=== PATIENT | male | born 1965 | race Caucasian/White ===

== ENCOUNTER → 2020-01-22 | Outpatient (CLI) | payer OTHER ==
--- NOTE | 2020-01-22 15:08 | Diagnostic Imaging Report ---
INDICATION: Cellulitis of right foot. EXAM: AP, oblique, and lateral views of the right foot are obtained. FINDINGS: The patient has had previous amputation of the 2nd and 1st digits. There are are likely chronic irregularities of the distal aspect of the 4th and 3rd metatarsals. Remaining structures appear unremarkable. IMPRESSION: Chronic changes of 1st and 2nd digits, status post amputation. There is irregularity of the 3rd and 4th metatarsals distally which may be chronic. There is no other abnormal finding. If there is clinical suspicion of osteomyelitis, MRI study would be more sensitive. Dictated by: Dictated on workstation # [id number]
== END ==
LOC: RAD 14:43
PROVIDERS: ATTEND Surgery
DX: L03.031 Cellulitis of right toe (principal); Z89.411 Acquired absence of right great toe; Z89.421 Acquired absence of other right toe(s)
CPT/HCPCS: 73630

== ENCOUNTER → 2020-02-10 | Outpatient (CLI) | payer OTHER ==
[~2020-02-10] MED LIST: GADOBUTROL 10 MMOL/10 ML (GADAVIST) VIAL IV ONE
[2020-02-10 09:56] LABS: CREATININE SERUM 1.29 MG/DL (0.60-1.30)
--- NOTE | 2020-02-10 11:36 | Diagnostic Imaging Report ---
PROCEDURE: MR imaging right lower extremity with and without contrast. TECHNIQUE: Multiplanar, multisequence pre and post contrast-enhanced MR imaging of the right lower extremity was accomplished. INDICATION: Cellulitis of third toe. FINDINGS: There are no prior MRI examinations available for comparison. The plain film examination of the right foot performed on 01/22/2020 did note that the phalanges of the first and second digits as well as portions of the heads of the first and second metatarsals have been amputated. There was also irregularity of the heads of the third and fourth metatarsal heads. On the T1 series of this exam, there are areas of diminished signal involving the heads of the third and fourth metatarsals. These regions do enhance following administration of contrast and I do suspect that there is involvement of both metatarsal heads by osteomyelitis. There is also a small area of enhancement involving the plantar aspect of the head of the second metatarsal. Most likely, there is a small focus of osteomyelitis in this region as well. There is no other abnormal enhancement to suggest osteomyelitis. There is mild soft tissue edema about the phalanges and metatarsal head of the third digit. There is no sign of a soft tissue abscess. IMPRESSION: The abnormal enhancement of the heads of the second, third, and fourth metatarsals does suggest that there is an element of osteomyelitis present. There is also edema/inflammation of the soft tissues about the phalanges and metatarsal head of the third ray. There is no soft tissue abscess visualized, however. Dictated by: Dictated on workstation # [id number]
== END ==
LOC: RAD 08:30
PROVIDERS: ATTEND Surgery
DX: L03.031 Cellulitis of right toe (principal)
CPT/HCPCS: 36415; 73720; 82565; 84520

== ENCOUNTER → 2020-02-13 | Outpatient (CLI) | payer OTHER ==
--- NOTE | 2020-02-13 11:49 | Diagnostic Imaging Report ---
INDICATION: Right foot osteomyelitis COMPARISON: Ultrasound from same date TECHNIQUE: Ankle to brachial indices are obtained bilaterally. FINDINGS: The right brachial systolic blood pressure is 128 mmHg. Systolic blood pressure within the right posterior tibial artery is 161 mmHg. Therefore, the right ankle-brachial index is 1.26, which is within normal limits. Systolic blood pressure within the left posterior tibial artery is 160 mmHg. Therefore, the left ankle to brachial index is 1.25. IMPRESSION: Normal bilateral ankle to brachial indices as described above. Dictated by: Dictated on workstation # [id number]
--- NOTE | 2020-02-13 14:33 | Diagnostic Imaging Report ---
INDICATION: Right foot osteomyelitis, peripheral arterial disease COMPARISON: None available TECHNIQUE: Right lower extremity arterial duplex ultrasound performed on 02/13/2020. FINDINGS: Triphasic waveforms are identified throughout the large arterial structures of the right lower extremity except biphasic waveforms are noted within the right profunda femoris artery. No monophasic waveforms. Peak brisk upstrokes are identified without tardus parvus morphology. No focally increased velocities. IMPRESSION: No evidence of hemodynamically significant stenosis within the large arterial structures of the right lower extremity. Dictated by: Dictated on workstation # [id number]
== END ==
LOC: RAD 02-12 16:11
PROVIDERS: ATTEND Surgery
DX: M86.9 Osteomyelitis, unspecified (principal)
CPT/HCPCS: 93923; 93926

== ENCOUNTER 2020-04-19 05:43 | Outpatient (RCR) | payer OTHER ==
[~2020-04-19] VITALS: Ht 182.9 cm; Wt 97.7 kg
[~2020-04-19 05:43] MED LIST changes: +EMPA10TA PO; -GADOBUTROL 10 MMOL/10 ML (GADAVIST) VIAL IV ONE; +GLIM4TAB5 PO; +LISI10TA2 PO; +MULT-1104 PO; +ROSU20TA32 PO
== END 2020-04-19 10:38 | disposition home or self-care (01) ==
LOC: PREOP 05:43
PROVIDERS: ATTEND Surgery
DX: Z01.812 Encounter for preprocedural laboratory examination (principal); Z20.828 Contact with and (suspected) exposure to other viral communicable diseases; M86.9 Osteomyelitis, unspecified
CPT/HCPCS: 87635

== ENCOUNTER 2020-04-22 06:14 | Day surgery (SDC) | payer OTHER ==
[~2020-04-22] VITALS: Ht 182 cm; Wt 97.7 kg
[2020-04-22] VITALS (7 sets, daily range): BP systolic 124–139; BP diastolic 73–83
--- OUTSIDE RECORDS SUMMARY | 2020-04-22 06:18 | XMS REPORT | Continuity of Care Document ---
Author Organization Unknown Address Unknown Phone Unavailable Allergies Active Description Code Type Severity Reaction Onset Reported/Identified Relationship to Patient Clinical Status Yes No Known Drug Allergies [id number] Drug Allergy Unknown N/A 02/10/2020 Medications There is no data. Problems Date Dx Coded Attending Type Code Diagnosis Diagnosed By 01/23/2020 GARCES DO, WILDER D Ot L03.031 CELLULITIS OF RIGHT TOE 01/23/2020 GARCES DO, WILDER D Ot 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 01/23/2020 GARCES DO, WILDER D Ot Z89.421 ACQUIRED ABSENCE OF OTHER RIGHT TOE(S) 01/26/2020 GARCES DO, WILDER D Ot L03.031 CELLULITIS OF RIGHT TOE 01/26/2020 GARCES DO, WILDER D Ot 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 01/26/2020 GARCES DO, WILDER D Ot Z89.421 ACQUIRED ABSENCE OF OTHER RIGHT TOE(S) 02/03/2020 GARCES DO, WILDER D Ot L03.031 CELLULITIS OF RIGHT TOE 02/03/2020 GARCES DO, WILDER D Ot 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 02/03/2020 GARCES DO, WILDER D Ot Z89.421 ACQUIRED ABSENCE OF OTHER RIGHT TOE(S) 02/04/2020 GARCES DO, WILDER D Ot L03.031 CELLULITIS OF RIGHT TOE 02/04/2020 GARCES DO, WILDER D Ot 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 02/04/2020 GARCES DO, WILDER D Ot Z89.421 ACQUIRED ABSENCE OF OTHER RIGHT TOE(S) 02/11/2020 GARCES DO, WILDER D Ot L03.031 CELLULITIS OF RIGHT TOE 02/12/2020 GARCES DO, WILDER D Ot L03.031 CELLULITIS OF RIGHT TOE 02/12/2020 GARCES DO, WILDER D Ot L03.031 CELLULITIS OF RIGHT TOE 02/12/2020 GARCES DO, WILDER D Ot 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 02/12/2020 COUNCIL BLUFFS DO, WILDER D Ot Z89.421 ACQUIRED ABSENCE OF OTHER RIGHT TOE(S) 02/12/2020 GARCES DO, WILDER D Ot L03.031 CELLULITIS OF RIGHT TOE 02/12/2020 COUNCIL BLUFFS DO, WILDER D Ot L03.031 CELLULITIS OF RIGHT TOE 02/16/2020 COUNCIL BLUFFS DO, WILDER D Ot M86. 9 OSTEOMYELITIS, UNSPECIFIED 02/25/2020 GARCES DO, WILDER D Ot L03.031 CELLULITIS OF RIGHT TOE 04/20/2020 COUNCIL BLUFFS DO, WILDER D Ot L03.031 CELLULITIS OF RIGHT TOE 04/20/2020 COUNCIL BLUFFS DO, WILDER D Ot 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 04/20/2020 COUNCIL BLUFFS DO, WILDER D Ot Z89.421 ACQUIRED ABSENCE OF OTHER RIGHT TOE(S) 04/20/2020 COUNCIL BLUFFS DO, WILDER D Ot L03.031 CELLULITIS OF RIGHT TOE 04/20/2020 COUNCIL BLUFFS DO, WILDER D Ot 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 04/20/2020 COUNCIL BLUFFS DO, WILDER D Ot Z89.421 ACQUIRED ABSENCE OF OTHER RIGHT TOE(S) 04/20/2020 COUNCIL BLUFFS DO, WILDER D Ot L03.031 CELLULITIS OF RIGHT TOE 04/20/2020 COUNCIL BLUFFS DO, WILDER D Ot 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 04/20/2020 COUNCIL BLUFFS DO, WILDER D Ot Z89.421 ACQUIRED ABSENCE OF OTHER RIGHT TOE(S) 04/20/2020 COUNCIL BLUFFS DO, WILDER D Ot L03.031 CELLULITIS OF RIGHT TOE 04/20/2020 COUNCIL BLUFFS DO, WILDER D Ot M86. 9 OSTEOMYELITIS, UNSPECIFIED Procedures There is no data. Results Test Result Range Coronavirus SARS-CoV-2 SO 2018 - 0 08:28 Coronavirus Ab [Units/volume] in Serum Negative Negative Encounters ACCT No. Visit Date/Time Discharge Status Pt. Type Provider Facility Loc./Unit Complaint [id number] 04/19/2020 05:43:00 020 10:38:00 DIS Outpatient COUNCIL BLUFFS WILDER GRAY [facility] PREOP RIGHT 3RD TOE AMPUTATIO N [id number] 02/13/2020 09:13:00 23:59:59 CLS Outpatient WILDER GARCES DO [facility] RAD RIGHT FOOT OSTEOMYELITI S [id number] 02/10/2020 08:30:00 23:59:59 CLS Outpatient WILDER GARCES DO [facility] RAD CELLULITIS OF RIGHT TOE [id number] 01/22/2020 14:43:00 23:59:59 CLS Outpatient WILDER GARCES DO [facility] RAD OSTEOMYLITIS [id number] 04/22/2020 08:00:00 P EN Preadmit WILDER GARCES DO [facility] SDC OSTEOMYLITIS RIGHT THIRD TOE
[2020-04-22] MEDS ORDERED: LACTATED RINGERS 1,000 ML IV PRN (06:23)
[2020-04-22] MEDS ORDERED: ceFAZolin 2 GM IV Premixed 50 ML IV ONE (06:30)
[2020-04-22] MEDS ORDERED: BUPIVACAINE 0.5% 30 ML (SENSORCAINE) VIAL ONE (07:40)
[2020-04-22] MEDS ORDERED: LIDOCAINE 1% INJ 20 ML 20 ML VIAL ONE (07:41)
[2020-04-22] MEDS ORDERED: ONDANSETRON 4 MG/2 ML (SDV) Z0FRAN IVP PRN (09:00)
[2020-04-22] MEDS ORDERED: morphine INJ 10 MG/ML 1ML (SYR OR VIAL) IVP ONE (09:00)
[2020-04-22] MEDS ORDERED: HYDR-4226 PO (09:32)
--- NOTE | 2020-04-22 09:34 | Discharge Inst-Simple/Standard ---
Discharge Inst-Standard Discharge Medications New, Converted or Re-Newed RX: RX on Chart Patient Instructions/Follow Up Plan of Care/Instructions/FU: 2 weeks Sofiya Activity as Tolerated: Yes Discharge Diet: Regular Diet Other Inst to Patient Follow up Appt: Make appointment for 2 week. Instructions: No lifting greater than 10 pounds. No strenuous activity. May shower in 24 hours, no tub bath or soaking. Use incentive spirometer at home as directed. No Smoking Skin/Wound Care: You have stitches, they will need to be removed in 2 weeks. Any issues before that be seen at that time. Symptoms to Report: Appetite Changes, Extremity Discoloration, Numbness/Tingling, Swelling Increased, Bleeding Excessive, Eyesight Changes, Pain Increased, Urine Color Change, Constipation(Persistent), Fever over 101 degree F, Pain/Pressure in chest, Urinating Difficulty, Cough Up/Vomit Blood, Heart Beat Irreg/Pounding, Pain/Pressure in jaw, Vaginal Bleeding Increase, Cramps in feet or legs, Lightheadedness, Pain/Pressure in shoulder, Diarrhea(Persistent), Memory Changes Suddenly, Questions/Concerns, Weight gain consecutive days, Dizziness/Fainting, Nausea/Vomiting, Shortness of Breath, Weight gain over 2 pounds If questions or concerns contact your physician Or seek help at emergency department. WILDER GARCES DO Apr 22, 2020 09:34
--- NOTE | 2020-04-22 10:29 | Anesthesia-General Post-Op ---
MAC Patient Condition Mental Status/LOC: Same as Preop Cardiovascular: Satisfactory Nausea/Vomiting: Absent Respiratory: Satisfactory Pain: Controlled Complications: Absent Post Op Complications Complications None Follow Up Care/Instructions Patient Instructions None needed. Anesthesiology Discharge Order Discharge Order Patient was seen after the procedure and he was doing well, no complaints, stable vital signs, no apparent adverse anesthesia problems. ARY GREGORIO DO Apr 22, 2020 10:29
--- NOTE | 2020-04-22 14:09 | Progress Note-Post Operative ---
Post-Operative Progess Note Surgeon (s)/Track Service Worker (s) Surgeon WILDER ARRIAZA DO Track Service Worker: na Pre-Operative Diagnosis Osteromyelitis right thrid toe Post-Operative Diagnosis same Procedure & Operative Findings Date of Procedure 04/22/20 Procedure Performed/Findings DATE OF SERVICE: PROCEDURE: Right ankle block and right third toe amputation. ANESTHESIA: MAC with a right ankle block. SURGEON: Wilder Arriaza DO ESTIMATED BLOOD LOSS: Minimal. COMPLICATIONS: None. INDICATIONS: The patient is a 54-year-old male who has right third toe with osteomyelitis. He was given option of right third toe amputation and ankle block. The patient understands risks and benefits of procedure and wished to proceed with procedure. Consent was signed in the chart. DESCRIPTION OF PROCEDURE: The patient was taken to the operating suite. He was prepped and draped in sterile fashion. Timeout was performed. A right ankle block was performed using Marcaine and lidocaine mix. The right tibial nerve, deep peroneal nerve, superficial peroneal nerves, sural nerve and the saphenous nerve were all injected with local anesthetic for block in the usual fashion. Once block was performed, a 15-blade scalpel was used to make a skin incision circumferentially around the right middle third toe. Cautery was used to dissect down through subcutaneous tissues, dividing muscle and tendons until the third metatarsal head, which was where the toe was from the foot. Hemostasis was achieved. Metatarsal head did not appear to have any osteomyelitis. The wound was irrigated with copious amounts of irrigation. The skin was then closed using 2-0 Prolene in a simple interrupted fashion. The patient tolerated procedure well without any complications. The area was washed and dried and sterile bandage was applied. The patient was taken to recovery room in stable condition. Anesthesia Type mac with right ankle block Estimated Blood Loss Estimated blood loss (mL): minimal Specimens/Packing Specimens Removed right third toe WILDER ARRIAZA DO Apr 22, 2020 14:09
== END 2020-04-22 10:05 | disposition home or self-care (01) ==
LOC: SDC 06:14
PROVIDERS: ATTEND Surgery
DX: M86.9 Osteomyelitis, unspecified (principal); E11.69 Type 2 diabetes mellitus with other specified complication; I10 Essential (primary) hypertension; Z90.89 Acquired absence of other organs; Z80.9 Family history of malignant neoplasm, unspecified
CPT/HCPCS: 82962; 87081

== ENCOUNTER 2020-04-30 18:47 | Emergency (ER) | payer OTHER ==
[~2020-04-30] VITALS: Ht 182.8 cm; Wt 90.3 kg
[~2020-04-30 18:47] MED LIST changes: +HYDR-4226 PO
[2020-04-30 19:24] LABS: BASOPHILS % (AUTO) 0 % (0-10); EOSINOPHILS # (AUTO) 0.2 10^3/uL (0.0-0.3); EOSINOPHILS % (AUTO) 2 % (0-10); HEMATOCRIT 37 % (40-54); HEMOGLOBIN 12.8 G/DL (13.3-17.7); LYMPHOCYTES # (AUTO) 1.5 X 10^3 (1.0-4.0); LYMPHOCYTES % (AUTO) 22 % (12-44); MEAN CORPUSCULAR HEMOGLOBIN 29 PG (25-34); MEAN CORPUSCULAR HGB CONC 35 G/DL (32-36); MEAN CORPUSCULAR VOLUME 85 FL (80-99); MEAN PLATELET VOLUME 9.9 FL (7.4-10.4); MONOCYTES # (AUTO) 0.5 X 10^3 (0.0-1.0); MONOCYTES % (AUTO) 7 % (0-12); NEUTROPHILS # (AUTO) 4.9 X 10^3 (1.8-7.8); NEUTROPHILS % (AUTO) 69 % (42-75); PLATELET COUNT 366 10^3/uL (130-400); WHITE BLOOD COUNT 7.1 10^3/uL (4.3-11.0)
[2020-04-30 19:35] LABS: ALBUMIN 4.6 GM/DL (3.2-4.5); CHLORIDE 104 MMOL/L (98-107); POTASSIUM 4.6 MMOL/L (3.6-5.0); SODIUM 139 MMOL/L (135-145)
[2020-04-30 19:36] LABS: CALCIUM 9.6 MG/DL (8.5-10.1)
[2020-04-30 19:37] LABS: GLUCOSE 210 MG/DL (70-105); TOTAL PROTEIN 7.7 GM/DL (6.4-8.2)
[2020-04-30 19:38] LABS: CARBON DIOXIDE 28 MMOL/L (21-32)
[2020-04-30 19:39] LABS: BILIRUBIN,TOTAL 0.7 MG/DL (0.1-1.0)
[2020-04-30 19:40] LABS: ALKALINE PHOSPHATASE 66 U/L (40-136)
[2020-04-30 19:41] LABS: GFR ESTIMATED 58
[2020-04-30 19:42] LABS: BUN/CREATININE RATIO 10
[2020-04-30 19:44] LABS: ALANINE AMINOTRANSFERASE 31 U/L (0-55)
--- NOTE | 2020-04-30 19:52 | NUR ---
WOUND CX COLLECTED BY DR. MERINO FROM INCISION POST TOE AMPUTATION ON RIGHT FOOT.
--- NOTE | 2020-04-30 20:14 | ED General ---
General Chief Complaint: Skin/Wound Problems Stated Complaint: INFECTION FROM TOE REMOVAL Nursing Triage Note: TO ED VIA POV AND AMBULATORY TO ROOM 6 WITH C/O HAVING 3RD TOE OF RIGHT FOOT AMPUTATED LAST WEEK BY DR. GARCES. STATES TODAY THERE WAS "PUS", WAS TOLD BY DR. GARCES TO "KEEP IT DRY" AND HAS F/U APPOT 05/06. Nursing Sepsis Screen: No Definite Risk Source of Information: Patient, Old Records Exam Limitations: No Limitations History of Present Illness Date Seen by Provider: Apr 30, 2020 Time Seen by Provider: 18:57 Initial Comments This 55-year-old gentleman presents to the emergency room with concerns about his operative site on the right foot after having amputation of the third toe on April [address] Garces. He previously had amputation of the first and second toe. He has diabetes which she states is fairly well controlled. His blood sugars are usually under 200. He denies any fever. He does have a throbbing pain. His primary concern is some mild erythema and increased drainage from the incision site. The area is moist and has mostly serosanguineous drainage. The edges of the wound do not appear sealed and the integrity of the tissue is questionable. The sutures appear a little loose. Patient was diagnosed with osteomyelitis in the right foot prompting the surgery. Allergies and Home Medications Allergies Coded Allergies: No Known Drug Allergies (Unverified , 02/10/20) Home Medications Empagliflozin Unknown Strength Tablet, 1 TAB PO DAILY, (Reported) Glimepiride 4 Mg Tablet, 4 MG PO DAILY, (Reported) Hydrocodone/Acetaminophen 1 Each Tablet, 1 TAB PO Q4-6HR Prescribed by: WILDER GARCES on 04/22/20 0932 Lisinopril 10 Mg Tablet, 10 MG PO DAILY, (Reported) Multivit-Min/Folic/Vit K/Lycop 1 Each Tablet, 1 EACH PO DAILY, (Reported) Rosuvastatin Calcium 20 Mg Tablet, 20 MG PO DAILY, (Reported) Sulfamethoxazole/Trimethoprim 1 Each Tablet, 1 EACH PO BID Prescribed by: REBEKA DUMONT on 04/30/202014 Tramadol HCl 50 Mg Tablet, 50 MG PO Q6H PRN for PAIN-BREAKTHROUGH Prescribed by: REBEKA DUMONT on 04/30/20 2016 Patient Home Medication List Home Medication List Reviewed: Yes Review of Systems Review of Systems Constitutional: no symptoms reported EENTM: no symptoms reported Respiratory: no symptoms reported Cardiovascular: no symptoms reported Gastrointestinal: no symptoms reported Genitourinary: no symptoms reported Musculoskeletal: see HPI Skin: see HPI Psychiatric/Neurological: No Symptoms Reported Hematologic/Lymphatic: No Symptoms Reported Past Sliqmpf-Drnsvs-Yfxipd Hx Past Med/Social Hx: Reviewed and Corrections made Patient Social History Alcohol Use: Denies Use Recreational Drug Use: No Smoking Status: Never a Smoker Recent Foreign Travel: No Contact w/Someone Who Travel: No Recent Infectious Disease Expo: No Recent Hopitalizations: No Physical Abuse: No Sexual Abuse: No Mistreated: No Fear: No Seasonal Allergies Seasonal Allergies: No Past Medical History Surgeries: Yes (BMT, DEVIATED SEPTUM, MX TOE AMPUTATIONS) Tonsillectomy Respiratory: No Currently Using CPAP: No Currently Using BIPAP: No Cardiac: Yes High Cholesterol, Hypertension Neurological: No Genitourinary: No Gastrointestinal: No Musculoskeletal: Yes (history osteomyelitis right foot) Endocrine: Yes Diabetes, Non-Insulin dep HEENT: Yes Cancer: No Psychosocial: No Integumentary: No Blood Disorders: No Physical Exam Vital Signs Vital Signs - First Documented 04/30/20 19:11 Temp 36.7 Pulse 77 Resp 16 B/P (MAP) 139/71 (93) O2 Delivery Room Air Capillary Refill : Less Than 3 Seconds Height, Weight, BMI Height: '" Weight: lbs. oz. kg; 27.00 BMI Method: General Appearance: No Apparent Distress, WD/WN HEENT: PERRL/EOMI, Normal ENT Inspection Neck: Normal Inspection Respiratory: Lungs Clear, Normal Breath Sounds, No Accessory Muscle Use Cardiovascular: Regular Rate, Rhythm, No Edema, No Murmur Extremity: Other (incision with multiple sutures on the distal right foot post amputation of the third toe. The length of the incision is moist with serosanguineous drainage. Edges of the wounds do not appear well healed. Sutures are slightly loose. Margins of the wound area are slightly erythematous.) Neurologic/Psychiatric: Alert, Oriented x3, No Motor/Sensory Deficits, Normal Mood/Affect, switchboard inspector II-XII Norm as Tested Skin: Other (see extremity exam above) Progress/Results/Core Measures Suspected Sepsis Recent Fever Within 48 Hours: No Infection Criteria Present: Suspected New Infection New/Unexplained Altered Menta: No Sepsis Screen: No Definite Risk SIRS Temperature: Pulse: 77 Respiratory Rate: 16 Laboratory Tests 04/30/20 19:15: White Blood Count 7.1 Blood Pressure 139 /71 Mean: 93 Laboratory Tests 04/30/20 19:15: Creatinine 1.30, Platelet Count 366, Total Bilirubin 0.7 Results/Orders Lab Results Laboratory Tests Test 04/30/20 19:15 Range/Units White Blood Count 7.1 4.3-11.0 10^3/uL Red Blood Count 4.37 4.35-5.85 10^6/uL Hemoglobin 12.8 L 13.3-17.7 G/DL Hematocrit 37 L 40-54 % Mean Corpuscular Volume 85 80-99 FL Mean Corpuscular Hemoglobin 29 25-34 PG Mean Corpuscular Hemoglobin Concent 35 32-36 G/DL Red Cell Distribution Width 14.0 10.0-14.5 % Platelet Count 366 130-400 10^3/uL Mean Platelet Volume 9.9 7.4-10.4 FL Neutrophils (%) (Auto) 69 42-75 % Lymphocytes (%) (Auto) 22 12-44 % Monocytes (%) (Auto) 7 0-12 % Eosinophils (%) (Auto) 2 0-10 % Basophils (%) (Auto) 0 0-10 % Neutrophils # (Auto) 4.9 1.8-7.8 X 10^3 Lymphocytes # (Auto) 1.5 1.0-4.0 X 10^3 Monocytes # (Auto) 0.5 0.0-1.0 X 10^3 Eosinophils # (Auto) 0.2 0.0-0.3 10^3/uL Basophils # (Auto) 0.0 0.0-0.1 10^3/uL Sodium Level 139 135-145 MMOL/L Potassium Level 4.6 3.6-5.0 MMOL/L Chloride Level 104 98-107 MMOL/L Carbon Dioxide Level 28 21-32 MMOL/L Anion Gap 7 5-14 MMOL/L Blood Urea Nitrogen 13 7-18 MG/DL Creatinine 1.30 0.60-1.30 MG/DL Estimat Glomerular Filtration Rate 58 BUN/Creatinine Ratio 10 Glucose Level 210 H 70-105 MG/DL Calcium Level 9.6 8.5-10.1 MG/DL Corrected Calcium 8.5-10.1 MG/DL Total Bilirubin 0.7 0.1-1.0 MG/DL Aspartate Amino Transf (AST/SGOT) 22 5-34 U/L Alanine Aminotransferase (ALT/SGPT) 31 0-55 U/L Alkaline Phosphatase 66 40-136 U/L C-Reactive Protein High Sensitivity 0.67 H 0.00-0.50 MG/DL Total Protein 7.7 6.4-8.2 GM/DL Albumin 4.6 H 3.2-4.5 GM/DL My Orders Orders - REBEKA MERINO MD Ed Iv/Invasive Line Start (04/30/20 18:57) Cbc With Automated Diff (04/30/20 18:57) Comprehensive Metabolic Panel (04/30/20 18:57) Hs C Reactive Protein (04/30/20 18:57) Sulfamethoxazole/Trimet Ds Tab (Bactrim (04/30/20 20:15) Wound Culture (04/30/20 20:07) Medications Given in ED Current Medications Medications Dose Ordered Sig/Alea Route Start Time Stop Time Status Last Admin Dose Admin Trimethoprim/ Sulfamethoxazole 1 ea ONCE ONCE PO 04/30/20 20:15 04/30/20 20:17 DC 04/30/20 20:09 1 EA Vital Signs/I&O 04/30/20 19:11 Temp 36.7 Pulse 77 Resp 16 B/P (MAP) 139/71 (93) O2 Delivery Room Air Capillary Refill : Less Than 3 Seconds Blood Pressure Mean: 93 Progress Note : Progress Note Culture was obtained. Bactrim was given for treatment of possible early wound infection. Patient complains of throbbing pain keeping him awake at night. Ultram was prescribed to help with this, especially since I do not want him using excessive amounts of ibuprofen with diabetes. He was advised to follow-up with the surgery office first thing Sunday morning. Departure Impression Primary Impression: Increased wound drainage Additional Impression: Diabetes type 2, controlled Qualified Codes: E11.628 - Type 2 diabetes mellitus with other skin com plications Disposition: HOME, SELF-CARE Condition: Improved Departure-Patient Inst. Decision time for Depature: 20:10 Referrals: NO,LOCAL PHYSICIAN (PCP/Family) Primary Care Physician Patient Instructions: Cellulitis (Skin Infection), Adult (DC) Add. Discharge Instructions: Your increased wound drainage may represent early infection. Complete antibiotics as prescribed. Continue with wound dressings as previously instructed. Complete antibiotics as prescribed. Drink plenty of clear liquids to stay well-hydrated. Contact Dr. Garces's office on Sunday morning to schedule a follow-up visit. I would like you seen as soon as possible. If Dr. Garces is not available, please see his partner Dr. Anaya. Monitor daily blood sugars. If there is an upward trend, please notify your surgeon and primary care provider. Minimize walking and physical disruption of the surgical site. Elevate to the level of your heart is much as possible. Keep covered except when at rest in a clean environment for showering. Return to care if you notice worsening symptoms such as worsening of the quality or quantity of drainage, fevers, escalating pain, etc. Use Tylenol (acetaminophen) as your primary pain medication. Use ibuprofen only for short-term use and relief of acute pain. Minimize use of ibuprofen and other NSAIDs with diabetes. Use Ultram (tramadol) as prescribed for more intense pain. It may be safely used with Tylenol and ibuprofen. All discharge instructions reviewed with patient and/or family. Voiced understanding. Scripts Tramadol HCl (Ultram) 50 Mg Tablet 50 MG PO Q6H PRN for PAIN-BREAKTHROUGH, #15 TAB Prov: REBEKA MERINO MD 04/30/20 Sulfamethoxazole/Trimethoprim (Bactrim Ds Tablet) 1 Each Tablet 1 EACH PO BID, #14 TAB Prov: REBEKA MERINO MD 04/30/20 Copy Copies To 1: WILDER GARCES JOSHUA T MD Apr 30, 2020 20:14
[2020-04-30] MEDS ORDERED: TRAM-42 PO (20:15)
[2020-04-30] MEDS ORDERED: TRIM/SULFAMETH 160/800 (SEPTRA DS) TAB PO ONE (20:15)
[2020-04-30] MEDS ORDERED: SULF1TAB35 PO (20:15)
[2020-04-30 20:21] VITALS: BP 131/68
--- OUTSIDE RECORDS SUMMARY | 2020-04-30 21:38 | XMS REPORT | Continuity of Care Document ---
Author Organization Unknown Address Unknown Phone Unavailable Allergies Active Description Code Type Severity Reaction Onset Reported/Identified Relationship to Patient Clinical Status Yes No Known Drug Allergies [id number] Drug Allergy Unknown N/A 02/10/2020 Medications There is no data. Problems Date Dx Coded Attending Type Code Diagnosis Diagnosed By 09/06/1037 [facility] WILDER GRAY Ot M86. 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 01/23/2020 [facility] Z89.421 ACQUIRED ABSENCE OF OTHER RIGHT TOE(S) 01/26/2020 [facility] L[facility].031 CELLULITIS OF RIGHT TOE 01/26/2020 [facility], WILDER Vanegas Ot 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 01/26/2020 [facility], WILDER Vanegas Ot Z89.421 ACQUIRED ABSENCE OF OTHER RIGHT TOE(S) 02/03/2020 [facility] L[facility].031 CELLULITIS OF RIGHT TOE 02/03/2020 [facility], WILDER Vanegas Ot 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 02/03/2020 [facility], WILDER Vanegas Ot Z89.421 ACQUIRED ABSENCE OF OTHER RIGHT TOE(S) 02/04/2020 [facility]031 CELLULITIS OF RIGHT TOE 02/04/2020 [facility], WILDER Vanegas Ot 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 02/04/2020 [facility] Z[facility].421 ACQUIRED ABSENCE OF OTHER RIGHT TOE(S) 02/11/2020 [facility].031 CELLULITIS OF RIGHT TOE 02/12/2020 [facility], WILDER Vanegas Ot L03.031 CELLULITIS OF RIGHT TOE 02/12/2020 [facility] DO, WILDER Vanegas Ot L03.031 CELLULITIS OF RIGHT TOE 02/12/2020 [facility] DO, WILDER Vanegas Ot 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 9 OSTEOMYELITIS, UNSPECIFIED 02/25/2020 [facility], WILDER Vanegas Ot L03.031 CELLULITIS OF RIGHT TOE 04/19/2020 [facility], WILDER Vanegas Ot M86. 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 04/20/2020 [facility], WILDER Vanegas Ot Z89.421 ACQUIRED ABSENCE OF OTHER RIGHT TOE(S) 04/20/2020 [facility], WILDER Vanegas Ot L03.031 CELLULITIS OF RIGHT TOE 04/20/2020 [facility], WILDER Vanegas Ot 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 9 OSTEOMYELITIS, UNSPECIFIED 04/28/2020 [facility], WILDER D Ot E11. 69 TYPE 2 DIABETES MELLITUS WITH OTHER SPEC 04/28/2020 [facility], WILDER D Ot I10 ESSENTIAL (PRIMARY) HYPERTENSION 04/28/2020 [facility], WILDER D Ot M86. 9 OSTEOMYELITIS, UNSPECIFIED 04/28/2020 [facility], WILDER D Ot Z80. 9 FAMILY HISTORY OF MALIGNANT NEOPLASM, UN 04/28/2020 [facility], WILDER D Ot Z90. 89 ACQUIRED ABSENCE OF OTHER ORGANS Procedures There is no data. Results Test Result Range Coronavirus SARS-CoV-2 SO 2018 - 0 08:28 Coronavirus Ab [Units/volume] in Serum Negative Negative Methicillin resistant Staphylococcus aur eus (MRSA) screening culture - 04/22/20 06:35 Methicillin resistant Staphylococcus aureus (MRSA) scr eening culture NEG NRG Capillary blood glucose measurement by g lucometer (mass/volume) - 04/22/20 06:38 Capillary blood glucose measurement by glucometer (mas s/volume) 163 mg/dL 70-110 Complete blood count (CBC) with automate d white blood cell (WBC) differential - 04/30/20 19:15 Blood leukocytes automated count (number/volume) 7.1 10*3/uL 4.3-11.0 Blood erythrocytes automated count (number/volume) 4.37 10*6/uL 4.35-5.85 Venous blood hemoglobin measurement (mass/volume) 12.8 g/dL 13.3-17.7 Blood hematocrit (volume fraction) 37 % 40-54 Automated erythrocyte mean corpuscular volume 85 [ foz_us] 80-99 Automated erythrocyte mean corpuscular h emoglobin (mass per erythrocyte) 29 pg 25-34 Automated erythrocyte mean corpuscular h emoglobin concentration measurement (mass/volume) 35 g/dL 32-36 Automated erythrocyte distribution width ratio 14. 0 % 10.0- 14.5 Automated blood platelet count (count/volume) 366 10*3/uL 130-400 Automated blood platelet mean volume measurement 9.9 [foz_us] 7.4-10.4 Automated blood neutrophils/100 leukocytes 69 % 42-75 Automated blood lymphocytes/100 leukocytes 22 % 12-44 Blood monocytes/100 leukocytes 7 % 0-12 Automated blood eosinophils/100 leukocytes 2 % 0-10 Automated blood basophils/100 leukocytes 0 % 0-10 Blood neutrophils automated count (number/volume) 4.9 10*3 1.8-7.8 Blood lymphocytes automated count (number/volume) 1.5 10*3 1.0-4.0 Blood monocytes automated count (number/volume) 0. 5 10*3 0.0-1.0 Automated eosinophil count 0.2 10*3/uL 0 .0-0.3 Automated blood basophil count (count/volume) 0.0 10*3/uL 0.0-0.1 Comprehensive metabolic panel - 04/30/20 19:15 Serum or plasma sodium measurement (moles/volume) 139 mmol/L 135-145 Serum or plasma potassium measurement (moles/volume) 4.6 mmol/L 3.6-5.0 Serum or plasma chloride measurement (moles/volume) 104 mmol/L 98-107 Carbon dioxide 28 mmol/L 21-32 Serum or plasma anion gap determination (moles/volume) 7 mmol/L 5-14 Serum or plasma urea nitrogen measurement (mass/volume ) 13 mg/dL 7-18 Serum or plasma creatinine measurement (mass/volume) 1.30 mg/dL 0.60-1.30 Serum or plasma urea nitrogen/creatinine mass ratio 10 NRG Serum or plasma creatinine measurement w ith calculation of estimated glomerular filtration rate 58 NRG Serum or plasma glucose measurement (mass/volume) 210 mg/dL 70-105 Serum or plasma calcium measurement (mass/volume) 9.6 mg/dL 8.5-10.1 Serum or plasma total bilirubin measurement (mass/volu me) 0.7 mg/dL 0.1-1.0 Serum or plasma alkaline phosphatase mickie surement (enzymatic activity/volume) 66 U/L 40-136 Serum or plasma aspartate aminotransfera se measurement (enzymatic activity/volume) 22 U/L 5-34 Serum or plasma alanine aminotransferase measurement (enzymatic activity/volume) 31 U/L 0-55 Serum or plasma protein measurement (mass/volume) 7.7 g/dL 6.4-8.2 Serum or plasma albumin measurement (mass/volume) 4.6 g/dL 3.2-4.5 Serum or plasma C reactive protein measu rement (mass/volume) - 04/30/20 19:15 Serum or plasma C reactive protein measurement (mass/v olume) 0.67 mg/dL 0.00-0.50 Encounters ACCT No. Visit Date/Time Discharge Status Pt. Type Provider Facility Loc./Unit Complaint [id number] 04/30/2020 18:48:00 20:27:00 DIS Emergency WILBER NARVAEZ, REBEKA Hull [facility] ER INFECTION FROM TOE REMOVAL [id number] 04/22/2020 06:14:00 10:05:00 DIS Outpatient WILDER GARCES DO [facility] SDC OSTEOMYLITIS RIGHT THIR D TOE [id number] 04/19/2020 05:43:00 10:38:00 DIS Outpatient WILDER GARCES DO [facility] PREOP RIGHT 3RD TOE AMPUTATIO N [id number] 02/13/2020 09:13:00 23:59:59 CLS Outpatient WILDER GARCES DO [facility] RAD RIGHT FOOT OSTEOMYELITI S [id number] 02/10/2020 08:30:00 23:59:59 CLS Outpatient WILDER GARCES DO [facility] RAD CELLULITIS OF RIGHT TOE [id number] 01/22/2020 14:43:00 23:59:59 CLS Outpatient WILDER GARCES DO [facility] RAD OSTEOMYLITIS
== END 2020-04-30 20:27 | disposition home or self-care (01) ==
LOC: EDUNIT# 18:47 → ER 18:48
DX: T81.89XA Other complications of procedures, not elsewhere classified, initial encounter (principal); E11.9 Type 2 diabetes mellitus without complications; I10 Essential (primary) hypertension; E78.00 Pure hypercholesterolemia, unspecified; Z89.421 Acquired absence of other right toe(s)
CPT/HCPCS: 36415; 80053; 85025; 86141; 87070; 87077; 87205

== ENCOUNTER 2020-05-05 17:35 | Emergency (ER) | payer OTHER ==
[~2020-05-05] VITALS: Ht 182 cm; Wt 92.9 kg
[~2020-05-05 17:35] MED LIST changes: +AMPI500C9 PO; +SULF1TAB35 PO; +TRAM-42 PO
[2020-05-05] MEDS ORDERED: NS IV 1000 ML 1,000 ML IV ONE (18:19)
[2020-05-05 18:27] LABS: BASOPHILS % (AUTO) 1 % (0-10); EOSINOPHILS # (AUTO) 0.1 10^3/uL (0.0-0.3); EOSINOPHILS % (AUTO) 2 % (0-10); HEMATOCRIT 37 % (40-54); HEMOGLOBIN 13.1 G/DL (13.3-17.7); LYMPHOCYTES # (AUTO) 0.7 X 10^3 (1.0-4.0); LYMPHOCYTES % (AUTO) 16 % (12-44); MEAN CORPUSCULAR HEMOGLOBIN 29 PG (25-34); MEAN CORPUSCULAR HGB CONC 35 G/DL (32-36); MEAN CORPUSCULAR VOLUME 82 FL (80-99); MEAN PLATELET VOLUME 9.8 FL (7.4-10.4); MONOCYTES # (AUTO) 0.6 X 10^3 (0.0-1.0); MONOCYTES % (AUTO) 14 % (0-12); NEUTROPHILS # (AUTO) 3.2 X 10^3 (1.8-7.8); NEUTROPHILS % (AUTO) 68 % (42-75); PLATELET COUNT 406 10^3/uL (130-400); RED CELL DISTRIBUTION WIDTH 13.9 % (10.0-14.5); WHITE BLOOD COUNT 4.6 10^3/uL (4.3-11.0)
[2020-05-05] MEDS ORDERED: PIPERACILLIN SODIUM/TAZOBACTAM 4.5 GM in NS (IVPB) 100 ML IV ONE (18:30)
[2020-05-05 18:33] LABS: ALBUMIN 4.8 GM/DL (3.2-4.5); CHLORIDE 97 MMOL/L (98-107); INR 1.1 (0.8-1.4); POTASSIUM 4.2 MMOL/L (3.6-5.0); PROTHROMBIN TIME PATIENT 14.4 SEC (12.2-14.7); SODIUM 135 MMOL/L (135-145)
[2020-05-05 18:34] LABS: CALCIUM 9.6 MG/DL (8.5-10.1)
[2020-05-05 18:36] LABS: GLUCOSE 176 MG/DL (70-105); TOTAL PROTEIN 8.1 GM/DL (6.4-8.2)
[2020-05-05 18:37] LABS: BILIRUBIN,TOTAL 1.3 MG/DL (0.1-1.0); CARBON DIOXIDE 26 MMOL/L (21-32)
[2020-05-05 18:39] LABS: ALKALINE PHOSPHATASE 66 U/L (40-136); CREATININE SERUM 1.52 MG/DL (0.60-1.30); GFR ESTIMATED 48
[2020-05-05 18:40] LABS: BUN/CREATININE RATIO 11
[2020-05-05 18:42] LABS: ALANINE AMINOTRANSFERASE 42 U/L (0-55)
--- NOTE | 2020-05-05 18:55 | NUR ---
Patient report taken from Maurilio Perry RN.
--- NOTE | 2020-05-05 19:06 | Diagnostic Imaging Report ---
INDICATION: Right foot pain. EXAMINATION: AP, oblique and lateral views of the right foot were obtained. COMPARISON: Examination of 01/22/2020. FINDINGS: There has been amputation of the 1st through 3rd phalanges with associated swelling at the stump with apparent gas within the wound as well. There is chronic appearing irregularity of the distal aspect of 1st through 4th metatarsals. No obvious acute fracture or dislocation is seen. IMPRESSION: Postoperative findings in the right forefoot with possible swelling and subcutaneous gas in the overlying tissues and clinical correlation would be useful. Possibility of cellulitis or developing osteomyelitis cannot be excluded. Dictated by: Dictated on workstation # [id number]
[2020-05-05] MEDS ORDERED: ONDA4TAB11 SL (19:41)
--- NOTE | 2020-05-05 19:41 | ED General ---
General Chief Complaint: Upper Extremity Stated Complaint: NUMBNESS IN ARM,BODY ACHES Nursing Triage Note: ARRIVED VIA AMB TO ROOM 06 WITHOUT DIFFICULTY. STATES FOR THE LAST TWO DAYS WHEN HE LAYS ON EITHER ARM HIS ARM BECOMES NUMB. TODAY AFTER A NAP HE WOKE UP AND HIS RIGHT ARM WAS NUMB AND IT HAS LAST FOR ABOUT 25 MINUTES AND STATES IT USUALLY GOES AWAY. ALSO COMPLAINS OF BODY ACHES X2 DAYS. I CALLED THIS PT TODAY TO CHANGE HIS ABX DUE TO A CULTURE RESULT. Nursing Sepsis Screen: No Definite Risk Source of Information: Patient, Old Records Exam Limitations: No Limitations History of Present Illness Date Seen by Provider: May 05, 2020 Time Seen by Provider: 18:11 Initial Comments Blair is a 55-year-old gentleman with diabetes and recent right third toe amputation for osteomyelitis April 22. He was seen in this ER on April 30 because of drainage from the wound. At that time the drainage was serosanguineous in na ture but he had some erythema surrounding the wound and the tissue integrity at the wound edges seemed poor. He was placed on Bactrim at that time because there is concern about developing infection. Since then his wound culture returned with actinomyces and enterococcus species sensitive to ampicillin. He received a call from the ER this morning to place him on ampicillin as a result of culture results. Today he complains of feeling achy and chilled. The edges of his wound have since degraded and he is now draining purulent rather than serosanguineous drainage. He does not have significant pain in the foot. Vital signs are unremarkable on arrival. He vomited once this afternoon and is no longer nauseated. He denies any diarrhea cough, shortness of breath, or other infectious symptoms at this time. He also complained of paresthesia in his upper extremities that occurs when he wakes up. He was concerned because the paresthesia in the right arm lasted longer today (about 25 minutes) than usual. However, it did resolve. Paresthesia was also present on the left but was of shorter duration. He has no focal deficits at this time. He has not been checking his blood sugars at home. He hasn't appointment with Dr. Garces tomorrow. He feels like he cannot find a comfortable position and sleep. He has taken tramadol without benefit. Allergies and Home Medications Allergies Coded Allergies: No Known Drug Allergies (Unverified , 02/10/20) Home Medications Ampicillin Trihydrate 500 Mg Capsule, 500 MG PO Q6H, (Reported) Empagliflozin Unknown Strength Tablet, 1 TAB PO DAILY, (Reported) Glimepiride 4 Mg Tablet, 4 MG PO DAILY, (Reported) Hydrocodone/Acetaminophen 1 Each Tablet, 1 TAB PO Q4-6HR Prescribed by: WILDER GARCES on 04/22/20 0932 Lisinopril 10 Mg Tablet, 10 MG PO DAILY, (Reported) Multivit-Min/Folic/Vit K/Lycop 1 Each Tablet, 1 EACH PO DAILY, (Reported) Ondansetron 4 Mg Tab.rapdis, 4 MG SL Q4H PRN for NAUSEA/VOMITING Prescribed by: REBEKA DUMONT on 05/05/20 194 Rosuvastatin Calcium 20 Mg Tablet, 20 MG PO DAILY, (Reported) Sulfamethoxazole/Trimethoprim 1 Each Tablet, 1 EACH PO BID Prescribed by: REBEKA DUMONT on 04/30/202014 Tramadol HCl 50 Mg Tablet, 50 MG PO Q6H PRN for PAIN-BREAKTHROUGH Prescribed by: REBEKA DUMONT on 04/30/202015 Patient Home Medication List Home Medication List Reviewed: Yes Review of Systems Review of Systems Constitutional: see HPI EENTM: no symptoms reported Respiratory: no symptoms reported Cardiovascular: no symptoms reported Gastrointestinal: see HPI Genitourinary: no symptoms reported Musculoskeletal: see HPI Skin: see HPI Psychiatric/Neurological: See HPI Hematologic/Lymphatic: No Symptoms Reported Immunological/Allergic: no symptoms reported Past Yefnovp-Otgwig-Rxtzmw Hx Patient Social History Alcohol Use: Denies Use Recreational Drug Use: No Smoking Status: Never a Smoker Recent Foreign Travel: No Contact w/Someone Who Travel: No Recent Infectious Disease Expo: No Recent Hopitalizations: No Seasonal Allergies Seasonal Allergies: No Past Medical History Surgeries: Yes (BMT, DEVIATED SEPTUM, MX TOE AMPUTATIONS) Amputation, Tonsillectomy Respiratory: No Currently Using CPAP: No Currently Using BIPAP: No Cardiac: Yes High Cholesterol, Hypertension Neurological: No Genitourinary: No Gastrointestinal: No Musculoskeletal: Yes (history osteomyelitis right foot) Endocrine: Yes Diabetes, Non-Insulin dep HEENT: Yes Cancer: No Psychosocial: No Integumentary: No Blood Disorders: No Physical Exam Vital Signs Vital Signs - First Documented 05/05/20 17:40 Temp 36.6 Pulse 84 Resp 16 B/P (MAP) 150/74 (99) Pulse Ox 99 O2 Delivery Room Air Capillary Refill : Less Than 3 Seconds Height, Weight, BMI Height: '" Weight: lbs. oz. kg; 28.00 BMI Method: General Appearance: No Apparent Distress, WD/WN HEENT: PERRL/EOMI, Normal ENT Inspection, Pharynx Normal Neck: Normal Inspection Respiratory: Lungs Clear, Normal Breath Sounds, No Accessory Muscle Use Cardiovascular: Regular Rate, Rhythm, No Edema, No Murmur, Normal Peripheral Pulses Gastrointestinal: Non Tender, Soft Extremity: Other (surgical wound on the right foot demonstrates purulent drainage. Erythema has improved since prior visit. Pedal pulses strong.) Neurologic/Psychiatric: Alert, Oriented x3, No Motor/Sensory Deficits, Normal Mood/Affect, internal communications intern II-XII Norm as Tested, Other (finger to nose normal bilaterally. No focal deficits appreciated.) Skin: Normal Color, Warm/Dry, Other (see extremity exam above.) Focused Exam Lactate Level 05/05/20 18:25: Lactic Acid Level 1.51 Lactic Acid Level Laboratory Tests Test 05/05/20 18:25 Lactic Acid Level 1.51 MMOL/L (0.50-2.00) Progress/Results/Core Measures Suspected Sepsis Recent Fever Within 48 Hours: No Infection Criteria Present: None New/Unexplained Altered Menta: No Sepsis Screen: No Definite Risk SIRS Temperature: Pulse: 84 Respiratory Rate: 16 Laboratory Tests 05/05/20 17:45: White Blood Count 4.6 Blood Pressure 150 /74 Mean: 99 05/05/20 18:25: Lactic Acid Level 1.51 Laboratory Tests 05/05/20 17:45: Creatinine 1.52H, INR Comment 1.1, Platelet Count 406H, Total Bilirubin 1.3H Results/Orders Lab Results Laboratory Tests Test 05/05/20 17:45 05/05/20 18:25 Range/Units White Blood Count 4.6 4.3-11.0 10^3/uL Red Blood Count 4.56 4.35-5.85 10^6/uL Hemoglobin 13.1 L 13.3-17.7 G/DL Hematocrit 37 L 40-54 % Mean Corpuscular Volume 82 80-99 FL Mean Corpuscular Hemoglobin 29 25-34 PG Mean Corpuscular Hemoglobin Concent 35 32-36 G/DL Red Cell Distribution Width 13.9 10.0-14.5 % Platelet Count 406 H 130-400 10^3/uL Mean Platelet Volume 9.8 7.4-10.4 FL Neutrophils (%) (Auto) 68 42-75 % Lymphocytes (%) (Auto) 16 12-44 % Monocytes (%) (Auto) 14 H 0-12 % Eosinophils (%) (Auto) 2 0-10 % Basophils (%) (Auto) 1 0-10 % Neutrophils # (Auto) 3.2 1.8-7.8 X 10^3 Lymphocytes # (Auto) 0.7 L 1.0-4.0 X 10^3 Monocytes # (Auto) 0.6 0.0-1.0 X 10^3 Eosinophils # (Auto) 0.1 0.0-0.3 10^3/uL Basophils # (Auto) 0.0 0.0-0.1 10^3/uL Prothrombin Time 14.4 12.2-14.7 SEC INR Comment 1.1 0.8-1.4 Activated Partial Thromboplast Time 47 H 24-35 SEC Sodium Level 135 135-145 MMOL/L Potassium Level 4.2 3.6-5.0 MMOL/L Chloride Level 97 L 98-107 MMOL/L Carbon Dioxide Level 26 21-32 MMOL/L Anion Gap 12 5-14 MMOL/L Blood Urea Nitrogen 16 7-18 MG/DL Creatinine 1.52 H 0.60-1.30 MG/DL Estimat Glomerular Filtration Rate 48 BUN/Creatinine Ratio 11 Glucose Level 176 H 70-105 MG/DL Calcium Level 9.6 8.5-10.1 MG/DL Corrected Calcium 8.5-10.1 MG/DL Total Bilirubin 1.3 H 0.1-1.0 MG/DL Aspartate Amino Transf (AST/SGOT) 32 5-34 U/L Alanine Aminotransferase (ALT/SGPT) 42 0-55 U/L Alkaline Phosphatase 66 40-136 U/L C-Reactive Protein High Sensitivity 1.51 H 0.00-0.50 MG/DL Total Protein 8.1 6.4-8.2 GM/DL Albumin 4.8 H 3.2-4.5 GM/DL Lactic Acid Level 1.51 0.50-2.00 MMOL/L My Orders Orders - REBEKA MERINO MD Cbc With Automated Diff (05/05/20 18:19) Comprehensive Metabolic Panel (05/05/20 18:19) Blood Culture (05/05/20 18:19) Protime With Inr (05/05/20 18:19) Partial Thromboplastin Time (05/05/20 18:19) Ed Iv/Invasive Line Start (05/05/20 18:19) Ed Iv/Invasive Line Start (05/05/20 18:19) Vital Signs Adult Sepsis Patie Q15M (05/05/20 18:19) O2 (05/05/20 18:19) Remove Rings In Anticipation O (05/05/20 18:19) Lactic Acid Analyzer (05/05/20 18:19) Hs C Reactive Protein (05/05/20 18:19) Ns Iv 1000 Ml (Sodium Chloride 0.9%) (05/05/20 18:19) Piperacillin Sodium/Tazobactam (Zosyn Vi (05/05/20 18:30) Foot, Right, 3 View (05/05/20 18:22) Rx-Hydrocodone/Apap 5-325 Mg (Rx-Vicodin (05/05/20 19:45) Ondansetron Oral Dissolve Tab (Zofran (05/05/20 19:45) Medications Given in ED Current Medications Medications Dose Ordered Sig/Alea Route Start Time Stop Time Status Last Admin Dose Admin Piperacillin Sod/ Tazobactam Sod 4.5 gm/Sodium Chloride 100 ml @ 200 mls/hr ONCE ONCE IV 05/05/20 18:30 05/05/20 18:59 DC 05/05/20 18:52 200 MLS/HR Sodium Chloride 1,000 ml @ 0 mls/hr Q0M ONCE IV 05/05/20 18:19 05/05/20 18:23 DC 05/05/20 18:35 1,000 MLS/HR Vital Signs/I&O 05/05/20 17:40 Temp 36.6 Pulse 84 Resp 16 B/P (MAP) 150/74 (99) Pulse Ox 99 O2 Delivery Room Air Capillary Refill : Less Than 3 Seconds Blood Pressure Mean: 99 Progress Note : Time: 19:52 Progress Note There was concerns that patient's symptoms may represent worsening infection and possibly early sepsis. Labs including blood cultures were obtained and Zosyn was administered along with a liter of IV fluid. There was no significant change in labs from his prior visit. Workup appeared aseptic after review of lab results. Patient was instructed to continue on both antibiotics and keep his appointment with Dr. Garces tomorrow. Case was reviewed with Dr. Anaya before deciding to discharge home. Patient was discharged with a bottle of hydrocodone to help with his pain tonight as well as a prescription for Zofran. Diagnostic Imaging Diagonstic Imaging: Xray Plain Films/CT/US/NM/MRI: other (right foot) Comments Right foot x-ray viewed by me and report reviewed. Compared with prior. See report below: NAME: BLAIR STEPHENSON [facility] REC#: [id number] PT STATUS: REG ER : 1965 PHYSICIAN: REBEKA MERINO MD ADMIT DATE: 05/05/20/ER Draft Date of Exam:05/05/20 FOOT, RIGHT, 3 VIEW INDICATION: Right foot pain. EXAMINATION: AP, oblique and lateral views of the right foot were obtained. COMPARISON: Examination of 01/22/2020. FINDINGS: There has been amputation of the 1st through 3rd phalanges with associated swelling at the stump with apparent gas within the wound as well. There is chronic appearing irregularity of the distal aspect of 1st through 4th metatarsals. No obvious acute fracture or dislocation is seen. IMPRESSION: Postoperative findings in the right forefoot with possible swelling and subcutaneous gas in the overlying tissues and clinical correlation would be useful. Possibility of cellulitis or developing osteomyelitis cannot be excluded. Dictated on workstation # [id number] Dict: 05/05/20 1859 Trans: 05/05/[address] [facility] [id number] Interpreted by: DAXA ANDREWS MD Departure Impression Primary Impression: Wound infection Additional Impressions: Paresthesia Nausea Disposition: 01 HOME, SELF-CARE Condition: Improved Departure-Patient Inst. Decision time for Depature: 19:37 Referrals: NO,LOCAL PHYSICIAN (PCP/Family) Primary Care Physician Add. Discharge Instructions: Follow-up with Dr. Garces at your scheduled appointment tomorrow. Continue taking Bactrim previously prescribed and add the ampicillin prescribed this morning through the ER. Take your next dose of ampicillin in the morning. You received some ampicillin in your IV tonight. Discuss chronic pain management with Dr. Garces and/or your primary care provider. Use hydrocodone as prescribed for pain. Use Zofran (ondansetron) dissolved under the tongue every 4 hours as needed for nausea and vomiting. Return to care if you have worsening of symptoms. Monitor your blood sugars closely with at least one blood sugar check per day. Log these blood sugars and share them with your primary care provider. All discharge instructions reviewed with patient and/or family. Voiced understanding. Scripts Ondansetron (Ondansetron Odt) 4 Mg Tab.rapdis 4 MG SL Q4H PRN for NAUSEA/VOMITING, #10 TAB Prov: REBEKA MERINO MD 05/05/20 Copy Copies To 1: WILDER GARCES JOSHUA T MD May 05, 2020 19:41
[2020-05-05] MEDS ORDERED: RX-HYDROCODONE/APAP 5/325 MG #4 TAB PK PO PRN (19:45)
[2020-05-05] MEDS ORDERED: ONDANSETRON 4 MG (ZOFRAN) ORAL DISSOLVE TAB SL ONE (19:45)
--- OUTSIDE RECORDS SUMMARY | 2020-05-05 19:49 | XMS REPORT | Continuity of Care Document ---
Author Organization Unknown Address Unknown Phone Unavailable Allergies Active Description Code Type Severity Reaction Onset Reported/Identified Relationship to Patient Clinical Status Yes No Known Drug Allergies [id number] Drug Allergy Unknown N/A 02/10/2020 Medications There is no data. Problems Date Dx Coded Attending Type Code Diagnosis Diagnosed By 09/06/1037 [facility] WILDER GRAY Ot M86. 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 01/26/2020 [facility], WILDER Vanegas Ot Z89.421 ACQUIRED ABSENCE OF OTHER RIGHT TOE(S) 02/03/2020 [facility]031 CELLULITIS OF RIGHT TOE 02/03/2020 [facility], WILDER Vanegas Ot 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 02/03/2020 [facility], WILDER Vanegas Ot Z89.421 ACQUIRED ABSENCE OF OTHER RIGHT TOE(S) 02/04/2020 [facility]031 CELLULITIS OF RIGHT TOE 02/04/2020 [facility], WILDER Vanegas Ot 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 02/04/2020 [facility] Z[facility].421 ACQUIRED ABSENCE OF OTHER RIGHT TOE(S) 02/11/2020 [facility] L[facility].031 CELLULITIS OF RIGHT TOE 02/12/2020 [facility], WILDER Vanegas Ot L03.031 CELLULITIS OF RIGHT TOE 02/12/2020 [facility], WILDER Vanegas Ot L03.031 CELLULITIS OF RIGHT TOE 02/12/2020 [facility], WILDER Vanegas Ot 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 9 OSTEOMYELITIS, UNSPECIFIED 02/25/2020 [facility], WILDER Vanegas Ot L03.031 CELLULITIS OF RIGHT TOE 04/19/2020 [facility], WILDER Vanegas Ot M86. 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 04/20/2020 [facility], WILDER Vanegas Ot Z89.421 ACQUIRED ABSENCE OF OTHER RIGHT TOE(S) 04/20/2020 [facility], WILDER Vanegas Ot L03.031 CELLULITIS OF RIGHT TOE 04/20/2020 [facility], WILDER Vanegas Ot 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 9 OSTEOMYELITIS, UNSPECIFIED 04/28/2020 [facility], WILDER D Ot E11. 69 TYPE 2 DIABETES MELLITUS WITH OTHER SPEC 04/28/2020 [facility], WILDER D Ot I10 ESSENTIAL (PRIMARY) HYPERTENSION 04/28/2020 [facility], WILDER D Ot M86. 9 OSTEOMYELITIS, UNSPECIFIED 04/28/2020 [facility], WILDER D Ot Z80. 9 FAMILY HISTORY OF MALIGNANT NEOPLASM, UN 04/28/2020 [facility], WILDER D Ot Z90. 89 ACQUIRED ABSENCE OF OTHER ORGANS 05/03/2020 REBEKA MERINO MD Ot E11.9 TYPE 2 DIABETES MELLITUS WITHOUT COMPLIC 05/03/2020 REBEKA MERINO MD Ot E78.00 PURE HYPERCHOLESTEROLEMIA, UNSPECIFIED 05/03/2020 REBEKA MERINO MD Ot I10 ESSENTIAL (PRIMARY) HYPERTENSION 05/03/2020 REBEKA MERINO MD Ot T81.89XA OTH COMPLICATIONS OF PROCEDURES, NEC, IN 05/03/2020 REBEKA MERINO MD, Ot Z89.421 ACQUIRED ABSENCE OF OTHER RIGHT TOE(S) Procedures There is no data. Results Test [...] protein measurement (mass/v olume) 0.67 mg/dL 0.00-0.50 Gram stain microscopy - 04/30/20 19:52 Gram stain microscopy No bacteria seen NRG Bacteria identification in wound by cult ure - 04/30/20 19:52 Bacteria identification in wound by culture [id number] NRG QUANTITY OF GROWTH FEW NRG SUSCEPTIBILITY SUSCEPTIBILITY REPORTED 05/04/20 10: 00 NRG Dirithromycin susceptibility test by dis k diffusion - 04/30/20 19:52 Vancomycin susceptibility test by minimum inhibitory c oncentration 1 NRG Ampicillin susceptibility test by minimum inhibitory c oncentration 1 NRG Linezolid susceptibility test by minimum inhibitory co ncentration <= NRG Daptomycin susc JER 2 NRG Comprehensive metabolic panel - 05/05/20 17:45 Serum or plasma sodium measurement (moles/volume) 135 mmol/L 135-145 Serum or plasma potassium measurement (moles/volume) 4.2 mmol/L 3.6-5.0 Serum or plasma chloride measurement (moles/volume) 97 mmol/L 98-107 Carbon dioxide 26 mmol/L 21-32 Serum or plasma anion gap determination (moles/volume) 12 mmol/L 5-14 Serum or plasma urea nitrogen measurement (mass/volume ) 16 mg/dL 7-18 Serum or plasma creatinine measurement (mass/volume) 1.52 mg/dL 0.60-1.30 Serum or plasma urea nitrogen/creatinine mass ratio 11 NRG Serum or plasma creatinine measurement w ith calculation of estimated glomerular filtration rate 48 NRG Serum or plasma glucose measurement (mass/volume) 176 mg/dL 70-105 Serum or plasma calcium measurement (mass/volume) 9.6 mg/dL 8.5-10.1 Serum or plasma total bilirubin measurement (mass/volu me) 1.3 mg/dL 0.1-1.0 Serum or plasma alkaline phosphatase mickie surement (enzymatic activity/volume) 66 U/L 40-136 Serum or plasma aspartate aminotransfera se measurement (enzymatic activity/volume) 32 U/L 5-34 Serum or plasma alanine aminotransferase measurement (enzymatic activity/volume) 42 U/L 0-55 Serum or plasma protein measurement (mass/volume) 8.1 g/dL 6.4-8.2 Serum or plasma albumin measurement (mass/volume) 4.8 g/dL 3.2-4.5 PT panel in platelet poor plasma by coag ulation assay - 05/05/20 17:45 Prothrombin time (PT) in platelet poor plasma by coagu lation assay 14.4 s 12.2-14.7 INR in platelet poor plasma or blood by coagulation as say 1.1 0.8-1.4 Activated partial thromboplastin time (a PTT) in platelet poor plasma bycoagulation assay - 05/05/20 17:45 Activated partial thromboplastin time (a PTT) in platelet poor plasma bycoagulation assay 47 s 24-35 Complete blood count (CBC) with automate d white blood cell (WBC) differential - 05/05/20 17:45 Blood leukocytes automated count (number/volume) 4.6 10*3/uL 4.3-11.0 Blood erythrocytes automated count (number/volume) 4.56 10*6/uL 4.35-5.85 Venous blood hemoglobin measurement (mass/volume) 13.1 g/dL 13.3-17.7 Blood hematocrit (volume fraction) 37 % 40-54 Automated erythrocyte mean corpuscular volume 82 [ foz_us] 80-99 Automated erythrocyte mean corpuscular h emoglobin (mass per erythrocyte) 29 pg 25-34 Automated erythrocyte mean corpuscular h emoglobin concentration measurement (mass/volume) 35 g/dL 32-36 Automated erythrocyte distribution width ratio 13. 9 % 10.0- 14.5 Automated blood platelet count (count/volume) 406 10*3/uL 130-400 Automated blood platelet mean volume measurement 9.8 [foz_us] 7.4-10.4 Automated blood neutrophils/100 leukocytes 68 % 42-75 Automated blood lymphocytes/100 leukocytes 16 % 12-44 Blood monocytes/100 leukocytes 14 % 0-12 Automated blood eosinophils/100 leukocytes 2 % 0-10 Automated blood basophils/100 leukocytes 1 % 0-10 Blood neutrophils automated count (number/volume) 3.2 10*3 1.8-7.8 Blood lymphocytes automated count (number/volume) 0.7 10*3 1.0-4.0 Blood monocytes automated count (number/volume) 0. 6 10*3 0.0-1.0 Automated eosinophil count 0.1 10*3/uL 0 .0-0.3 Automated blood basophil count (count/volume) 0.0 10*3/uL 0.0-0.1 Serum or plasma C reactive protein measu rement (mass/volume) - 05/05/20 17:45 Serum or plasma C reactive protein measurement (mass/v olume) 1.51 mg/dL 0.00-0.50 Blood lactic acid measurement (moles/vol ume) - 05/05/20 18:25 Blood lactic acid measurement (moles/volume) 1.51 mmol/L 0.50-2.00 Encounters ACCT No. Visit Date/Time Discharge Status Pt. Type Provider Facility Loc./Unit Complaint [id number] 04/30/2020 18:48:00 20:27:00 DIS Outpatient REBEKA MERINO MD [facility] ER INFECTION FROM TOE REMOVAL [id number] 04/22/2020 06:14:00 10:05:00 DIS Outpatient WILDER GARCES DO [facility] SDC OSTEOMYLITIS RIGHT THIR D TOE [id number] 04/19/2020 05:43:00 10:38:00 DIS Outpatient GARCES WILDER GRAY [facility] PREOP RIGHT 3RD TOE AMPUTATIO N [id number] 02/13/2020 09:13:00 23:59:59 CLS Outpatient GARCES WILDER GRAY [facility] RAD RIGHT FOOT OSTEOMYELITI S [id number] 02/10/2020 08:30:00 23:59:59 CLS Outpatient [place] WILDER GRAY [facility] RAD CELLULITIS OF RIGHT TOE [id number] 01/22/2020 14:43:00 23:59:59 CLS Outpatient GARCES WILDER GRAY [facility] RAD OSTEOMYLITIS [id number] 05/05/2020 17:37:[address] Emergency WILBER NARVAEZ, REBEKA Hull [facility] ER NUMBNESS IN ARM,BODY ACHES
[2020-05-05 19:57] VITALS: BP 139/57
== END 2020-05-05 20:00 | disposition home or self-care (01) ==
LOC: EDUNIT# 17:35 → ER 17:37
DX: T87.43 Infection of amputation stump, right lower extremity (principal); R20.2 Paresthesia of skin; R11.0 Nausea; E11.9 Type 2 diabetes mellitus without complications; I10 Essential (primary) hypertension; E78.00 Pure hypercholesterolemia, unspecified
CPT/HCPCS: 36415; 73630; 80053; 83605; 85025; 85610; 85730; 86141; 87040

== ENCOUNTER → 2020-05-24 | Outpatient (CLI) | payer OTHER ==
[~2020-05-24] MED LIST changes: +ONDA4TAB11 SL
== END ==
LOC: WOUNDCARE 13:17
PROVIDERS: ATTEND Surgery
DX: E11.621 Type 2 diabetes mellitus with foot ulcer (principal); E11.42 Type 2 diabetes mellitus with diabetic polyneuropathy; L97.516 Non-pressure chronic ulcer of other part of right foot with bone involvement without evidence of necrosis; I70.235 Atherosclerosis of native arteries of right leg with ulceration of other part of foot
CPT/HCPCS: 11043; A6260; G0463

== ENCOUNTER → 2020-05-31 | Outpatient (CLI) | payer OTHER | LOC: WOUNDCARE 13:00 | PROVIDERS: ATTEND Surgery | DX: E11.621 Type 2 diabetes mellitus with foot ulcer (principal); E11.42 Type 2 diabetes mellitus with diabetic polyneuropathy; L97.516 Non-pressure chronic ulcer of other part of right foot with bone involvement without evidence of necrosis; I70.235 Atherosclerosis of native arteries of right leg with ulceration of other part of foot; E11.52 Type 2 diabetes mellitus with diabetic peripheral angiopathy with gangrene; Z20.828 Contact with and (suspected) exposure to other viral communicable diseases | CPT/HCPCS: 11043; G0463 ==

== ENCOUNTER → 2020-06-10 | Outpatient (CLI) | payer OTHER | LOC: WOUNDCARE 10:00 | PROVIDERS: ATTEND Surgery | DX: E11.621 Type 2 diabetes mellitus with foot ulcer (principal); E11.42 Type 2 diabetes mellitus with diabetic polyneuropathy; L97.512 Non-pressure chronic ulcer of other part of right foot with fat layer exposed; I70.245 Atherosclerosis of native arteries of left leg with ulceration of other part of foot; E11.52 Type 2 diabetes mellitus with diabetic peripheral angiopathy with gangrene; Z20.828 Contact with and (suspected) exposure to other viral communicable diseases | CPT/HCPCS: 11043; G0463 ==

== ENCOUNTER → 2020-06-16 | Outpatient (CLI) | payer OTHER | LOC: WOUNDCARE 08:19 | PROVIDERS: ATTEND Surgery | DX: L97.511 Non-pressure chronic ulcer of other part of right foot limited to breakdown of skin (principal); E11.621 Type 2 diabetes mellitus with foot ulcer; E11.42 Type 2 diabetes mellitus with diabetic polyneuropathy; L97.512 Non-pressure chronic ulcer of other part of right foot with fat layer exposed; E11.52 Type 2 diabetes mellitus with diabetic peripheral angiopathy with gangrene; Z20.828 Contact with and (suspected) exposure to other viral communicable diseases | CPT/HCPCS: 11042; 97597; G0463 ==

== ENCOUNTER → 2020-06-23 | Outpatient (CLI) | payer OTHER | LOC: WOUNDCARE 08:26 | PROVIDERS: ATTEND Surgery | DX: E11.621 Type 2 diabetes mellitus with foot ulcer (principal); E11.42 Type 2 diabetes mellitus with diabetic polyneuropathy; L97.512 Non-pressure chronic ulcer of other part of right foot with fat layer exposed; E11.52 Type 2 diabetes mellitus with diabetic peripheral angiopathy with gangrene; Z20.828 Contact with and (suspected) exposure to other viral communicable diseases | CPT/HCPCS: 11042; G0463 ==

== ENCOUNTER → 2020-06-30 | Outpatient (CLI) | payer OTHER | LOC: WOUNDCARE 08:20 | PROVIDERS: ATTEND Surgery | DX: E11.621 Type 2 diabetes mellitus with foot ulcer (principal); E11.42 Type 2 diabetes mellitus with diabetic polyneuropathy; L97.512 Non-pressure chronic ulcer of other part of right foot with fat layer exposed; E11.52 Type 2 diabetes mellitus with diabetic peripheral angiopathy with gangrene; Z20.828 Contact with and (suspected) exposure to other viral communicable diseases | CPT/HCPCS: 11042; G0463 ==

== ENCOUNTER → 2020-07-07 | Outpatient (CLI) | payer OTHER | LOC: WOUNDCARE 08:32 | PROVIDERS: ATTEND Surgery | DX: E11.621 Type 2 diabetes mellitus with foot ulcer (principal); E11.42 Type 2 diabetes mellitus with diabetic polyneuropathy; E11.52 Type 2 diabetes mellitus with diabetic peripheral angiopathy with gangrene; I96 Gangrene, not elsewhere classified; L97.512 Non-pressure chronic ulcer of other part of right foot with fat layer exposed; L92.8 Other granulomatous disorders of the skin and subcutaneous tissue | CPT/HCPCS: 11042; 17250; G0463 ==

== ENCOUNTER → 2020-07-14 | Outpatient (CLI) | payer OTHER | LOC: WOUNDCARE 08:16 | PROVIDERS: ATTEND Surgery | DX: E11.621 Type 2 diabetes mellitus with foot ulcer (principal); E11.52 Type 2 diabetes mellitus with diabetic peripheral angiopathy with gangrene; E11.42 Type 2 diabetes mellitus with diabetic polyneuropathy; L97.512 Non-pressure chronic ulcer of other part of right foot with fat layer exposed; L92.8 Other granulomatous disorders of the skin and subcutaneous tissue | CPT/HCPCS: 11042; 17250; G0463 ==

== ENCOUNTER → 2020-07-21 | Outpatient (CLI) | payer OTHER | LOC: WOUNDCARE 08:23 | PROVIDERS: ATTEND Surgery | DX: E11.621 Type 2 diabetes mellitus with foot ulcer (principal); E11.42 Type 2 diabetes mellitus with diabetic polyneuropathy; L97.512 Non-pressure chronic ulcer of other part of right foot with fat layer exposed; I96 Gangrene, not elsewhere classified | CPT/HCPCS: 11042; G0463 ==

== ENCOUNTER → 2020-07-29 | Outpatient (CLI) | payer OTHER | LOC: WOUNDCARE 08:43 | PROVIDERS: ATTEND Surgery | DX: E11.621 Type 2 diabetes mellitus with foot ulcer (principal); E11.42 Type 2 diabetes mellitus with diabetic polyneuropathy; I96 Gangrene, not elsewhere classified; L97.512 Non-pressure chronic ulcer of other part of right foot with fat layer exposed | CPT/HCPCS: 11042; G0463 ==

== ENCOUNTER → 2020-08-04 | Outpatient (CLI) | payer OTHER | LOC: WOUNDCARE 08:18 | PROVIDERS: ATTEND Surgery | DX: E11.621 Type 2 diabetes mellitus with foot ulcer (principal); E11.42 Type 2 diabetes mellitus with diabetic polyneuropathy; I96 Gangrene, not elsewhere classified; L97.512 Non-pressure chronic ulcer of other part of right foot with fat layer exposed | CPT/HCPCS: 11042; G0463 ==

== ENCOUNTER → 2020-08-11 | Outpatient (CLI) | payer OTHER | LOC: WOUNDCARE 08:15 | PROVIDERS: ATTEND Surgery | DX: E11.621 Type 2 diabetes mellitus with foot ulcer (principal); E11.42 Type 2 diabetes mellitus with diabetic polyneuropathy; L97.512 Non-pressure chronic ulcer of other part of right foot with fat layer exposed; I96 Gangrene, not elsewhere classified | CPT/HCPCS: 11042; G0463 ==

== ENCOUNTER → 2020-08-18 | Outpatient (CLI) | payer OTHER | LOC: WOUNDCARE 08:42 | PROVIDERS: ATTEND Surgery | DX: E11.621 Type 2 diabetes mellitus with foot ulcer (principal); E11.42 Type 2 diabetes mellitus with diabetic polyneuropathy; L97.512 Non-pressure chronic ulcer of other part of right foot with fat layer exposed; E11.52 Type 2 diabetes mellitus with diabetic peripheral angiopathy with gangrene; Z20.828 Contact with and (suspected) exposure to other viral communicable diseases | CPT/HCPCS: 15275; G0463 ==

== ENCOUNTER → 2020-08-25 | Outpatient (CLI) | payer OTHER | LOC: WOUNDCARE 08:37 | PROVIDERS: ATTEND Surgery | DX: E11.621 Type 2 diabetes mellitus with foot ulcer (principal); E11.42 Type 2 diabetes mellitus with diabetic polyneuropathy; I96 Gangrene, not elsewhere classified; L97.512 Non-pressure chronic ulcer of other part of right foot with fat layer exposed | CPT/HCPCS: 15275; G0463 ==

== ENCOUNTER → 2020-09-01 | Outpatient (CLI) | payer OTHER | LOC: WOUNDCARE 08:16 | PROVIDERS: ATTEND Surgery | DX: E11.621 Type 2 diabetes mellitus with foot ulcer (principal); E11.42 Type 2 diabetes mellitus with diabetic polyneuropathy; L97.512 Non-pressure chronic ulcer of other part of right foot with fat layer exposed; E11.52 Type 2 diabetes mellitus with diabetic peripheral angiopathy with gangrene; Z20.828 Contact with and (suspected) exposure to other viral communicable diseases | CPT/HCPCS: 15275; G0463 ==

== ENCOUNTER → 2020-09-08 | Outpatient (CLI) | payer OTHER | LOC: WOUNDCARE 08:52 | PROVIDERS: ATTEND Surgery | DX: E11.621 Type 2 diabetes mellitus with foot ulcer (principal); E11.52 Type 2 diabetes mellitus with diabetic peripheral angiopathy with gangrene; E11.42 Type 2 diabetes mellitus with diabetic polyneuropathy; I96 Gangrene, not elsewhere classified; I87.331 Chronic venous hypertension (idiopathic) with ulcer and inflammation of right lower extremity; L97.211 Non-pressure chronic ulcer of right calf limited to breakdown of skin; L97.512 Non-pressure chronic ulcer of other part of right foot with fat layer exposed; L03.115 Cellulitis of right lower limb | CPT/HCPCS: 11042; A4649; G0463 ==

== ENCOUNTER → 2020-09-15 | Outpatient (CLI) | payer OTHER | LOC: WOUNDCARE 08:14 | PROVIDERS: ATTEND Surgery | DX: I87.331 Chronic venous hypertension (idiopathic) with ulcer and inflammation of right lower extremity (principal); L03.115 Cellulitis of right lower limb; L97.211 Non-pressure chronic ulcer of right calf limited to breakdown of skin; E11.621 Type 2 diabetes mellitus with foot ulcer; E11.42 Type 2 diabetes mellitus with diabetic polyneuropathy; L97.512 Non-pressure chronic ulcer of other part of right foot with fat layer exposed | CPT/HCPCS: 15275; G0463 ==

== ENCOUNTER → 2020-09-22 | Outpatient (CLI) | payer OTHER | LOC: WOUNDCARE 08:11 | PROVIDERS: ATTEND Surgery | DX: I87.331 Chronic venous hypertension (idiopathic) with ulcer and inflammation of right lower extremity (principal); L97.211 Non-pressure chronic ulcer of right calf limited to breakdown of skin; E11.621 Type 2 diabetes mellitus with foot ulcer; E11.42 Type 2 diabetes mellitus with diabetic polyneuropathy; L98.492 Non-pressure chronic ulcer of skin of other sites with fat layer exposed; I96 Gangrene, not elsewhere classified | CPT/HCPCS: 15275; G0463 ==

== ENCOUNTER → 2020-09-29 | Outpatient (CLI) | payer OTHER | LOC: WOUNDCARE 08:21 | PROVIDERS: ATTEND Surgery | DX: I87.331 Chronic venous hypertension (idiopathic) with ulcer and inflammation of right lower extremity (principal); I96 Gangrene, not elsewhere classified; E11.621 Type 2 diabetes mellitus with foot ulcer; E11.42 Type 2 diabetes mellitus with diabetic polyneuropathy; L97.211 Non-pressure chronic ulcer of right calf limited to breakdown of skin; L97.512 Non-pressure chronic ulcer of other part of right foot with fat layer exposed | CPT/HCPCS: 11042; 87070; 87077; 87181; 87186; 87205; G0463 ==

== ENCOUNTER → 2020-10-06 | Outpatient (CLI) | payer OTHER ==
[~2020-10-06] MED LIST changes: +GADOBUTROL 10 MMOL/10 ML (GADAVIST) VIAL IV ONE
--- NOTE | 2020-10-06 09:19 | Diagnostic Imaging Report ---
EXAM: MRI right foot without and with intravenous contrast. DATE: October 06, 2020. INDICATION: 55-year-old male, wound at the plantar surface of the third metatarsal head. Evaluation for osteomyelitis. COMPARISON: Right foot radiographs May 05, 2020. TECHNIQUE: Multiple pre and post contrast MRI sequences of the right foot were obtained. FINDINGS: There is a skin defect volarly located at the level of the soft tissue marker, consistent with the site of soft tissue ulcer. There is adjacent abnormal signal and contrast enhancement which extends to contact the third metatarsal head. The morphology of the third metatarsal head and distal aspect of the third metatarsal is irregular. There is no clear overt bone destruction or T1 marrow signal loss. There is also no particularly prominent abnormal marrow edema in the distal aspect of the third metatarsal. The visualized portions of the peroneal tendons, posterior flexor tendons, and anterior extensor tendons are intact. The Lisfranc ligament proper is intact. The visualized portions of the plantar fascia are intact. There is no identified focal fluid collection or abscess. There is absence of the first, second, and third digit phalanges. There is a contour abnormality of the distal aspect of the fourth metatarsal with low-level marrow edema at this location. There is no abnormal adjacent soft tissue signal. There is no large joint effusion. IMPRESSION: 1. Volar soft tissue ulcer at the level of the third metatarsal head which extends to directly contact the third metatarsal at its distal aspect; however, there is no clear evidence of an acute aggressive osteomyelitis. There is contour abnormality of the third metatarsal distally which likely relates to the sequela of prior insult. 2. Prior insult of the distal aspect of the fourth metatarsal without current evidence of osteomyelitis at this location. 3. Post operative absence of the first, second, and third digit phalanges. 4. No identified focal fluid collection or abscess. 5. No evidence of tenosynovitis. Dictated by: Dictated on workstation # [id number]
== END ==
LOC: RAD 08:00
PROVIDERS: ATTEND Surgery
DX: I87.331 Chronic venous hypertension (idiopathic) with ulcer and inflammation of right lower extremity (principal); L97.211 Non-pressure chronic ulcer of right calf limited to breakdown of skin; E11.621 Type 2 diabetes mellitus with foot ulcer; E11.42 Type 2 diabetes mellitus with diabetic polyneuropathy; L97.512 Non-pressure chronic ulcer of other part of right foot with fat layer exposed; Z98.890 Other specified postprocedural states
CPT/HCPCS: 73720

== ENCOUNTER → 2020-10-06 | Outpatient (CLI) | payer OTHER ==
[~2020-10-06] MED LIST changes: -GADOBUTROL 10 MMOL/10 ML (GADAVIST) VIAL IV ONE
== END ==
LOC: WOUNDCARE 09:09
PROVIDERS: ATTEND Surgery
DX: I87.331 Chronic venous hypertension (idiopathic) with ulcer and inflammation of right lower extremity (principal); L97.211 Non-pressure chronic ulcer of right calf limited to breakdown of skin; E11.621 Type 2 diabetes mellitus with foot ulcer; E11.42 Type 2 diabetes mellitus with diabetic polyneuropathy; L97.512 Non-pressure chronic ulcer of other part of right foot with fat layer exposed; I96 Gangrene, not elsewhere classified
CPT/HCPCS: 11042; G0463

== ENCOUNTER → 2020-10-13 | Outpatient (CLI) | payer OTHER | LOC: WOUNDCARE 10:05 | PROVIDERS: ATTEND Surgery | DX: E11.621 Type 2 diabetes mellitus with foot ulcer (principal); E11.42 Type 2 diabetes mellitus with diabetic polyneuropathy; L97.512 Non-pressure chronic ulcer of other part of right foot with fat layer exposed | CPT/HCPCS: 11042; G0463 ==

== ENCOUNTER → 2020-10-20 | Outpatient (CLI) | payer OTHER | LOC: WOUNDCARE 09:25 | PROVIDERS: ATTEND Orthopaedic Surgery Hand Surgery | DX: E11.621 Type 2 diabetes mellitus with foot ulcer (principal); E11.42 Type 2 diabetes mellitus with diabetic polyneuropathy; I96 Gangrene, not elsewhere classified; L97.512 Non-pressure chronic ulcer of other part of right foot with fat layer exposed | CPT/HCPCS: 11042; G0463 ==

== ENCOUNTER → 2020-10-25 | Outpatient (CLI) | payer OTHER | LOC: WOUNDCARE 10:47 | PROVIDERS: ATTEND Surgery | DX: E11.621 Type 2 diabetes mellitus with foot ulcer (principal); E11.42 Type 2 diabetes mellitus with diabetic polyneuropathy; L97.512 Non-pressure chronic ulcer of other part of right foot with fat layer exposed | CPT/HCPCS: 11042; A6207; G0463 ==

== ENCOUNTER → 2020-10-27 | Outpatient (CLI) | payer OTHER | LOC: WOUNDCARE 08:24 | PROVIDERS: ATTEND Surgery | DX: E11.621 Type 2 diabetes mellitus with foot ulcer (principal); E11.42 Type 2 diabetes mellitus with diabetic polyneuropathy; L97.512 Non-pressure chronic ulcer of other part of right foot with fat layer exposed | CPT/HCPCS: 29445 ==

== ENCOUNTER → 2020-11-02 | Outpatient (CLI) | payer OTHER | LOC: WOUNDCARE 08:21 | PROVIDERS: ATTEND Orthopaedic Surgery Hand Surgery | DX: E11.621 Type 2 diabetes mellitus with foot ulcer (principal); E11.42 Type 2 diabetes mellitus with diabetic polyneuropathy; L97.512 Non-pressure chronic ulcer of other part of right foot with fat layer exposed; I96 Gangrene, not elsewhere classified | CPT/HCPCS: 11042; G0463 ==

== ENCOUNTER → 2020-11-10 | Outpatient (CLI) | payer OTHER | LOC: WOUNDCARE 09:44 | PROVIDERS: ATTEND Surgery | DX: E11.621 Type 2 diabetes mellitus with foot ulcer (principal); E11.42 Type 2 diabetes mellitus with diabetic polyneuropathy; L97.512 Non-pressure chronic ulcer of other part of right foot with fat layer exposed; I96 Gangrene, not elsewhere classified | CPT/HCPCS: 11042; A6197; G0463 ==

== ENCOUNTER → 2020-11-15 | Outpatient (CLI) | payer OTHER | LOC: WOUNDCARE 09:22 | PROVIDERS: ATTEND Surgery | DX: E11.621 Type 2 diabetes mellitus with foot ulcer (principal); E11.42 Type 2 diabetes mellitus with diabetic polyneuropathy; L97.512 Non-pressure chronic ulcer of other part of right foot with fat layer exposed; E11.52 Type 2 diabetes mellitus with diabetic peripheral angiopathy with gangrene | CPT/HCPCS: 11042; A6207; G0463 ==

== ENCOUNTER → 2020-11-17 | Outpatient (CLI) | payer OTHER | LOC: WOUNDCARE 14:04 | PROVIDERS: ATTEND Surgery | DX: E11.621 Type 2 diabetes mellitus with foot ulcer (principal); E11.42 Type 2 diabetes mellitus with diabetic polyneuropathy; I96 Gangrene, not elsewhere classified; L97.512 Non-pressure chronic ulcer of other part of right foot with fat layer exposed | CPT/HCPCS: 29445; G0463 ==

== ENCOUNTER → 2020-11-24 | Outpatient (CLI) | payer OTHER ==
[~2020-11-24] MED LIST changes: -LISI10TA2 PO; +LISI10TA25 PO
== END ==
LOC: WOUNDCARE 10:43
PROVIDERS: ATTEND Orthopaedic Surgery Hand Surgery
DX: E11.621 Type 2 diabetes mellitus with foot ulcer (principal); E11.42 Type 2 diabetes mellitus with diabetic polyneuropathy; I96 Gangrene, not elsewhere classified; L97.512 Non-pressure chronic ulcer of other part of right foot with fat layer exposed
CPT/HCPCS: 11042; G0463

== ENCOUNTER → 2020-12-01 | Outpatient (CLI) | payer OTHER | LOC: WOUNDCARE 10:00 | PROVIDERS: ATTEND Surgery | DX: E11.621 Type 2 diabetes mellitus with foot ulcer (principal); E11.42 Type 2 diabetes mellitus with diabetic polyneuropathy; L97.512 Non-pressure chronic ulcer of other part of right foot with fat layer exposed; E11.52 Type 2 diabetes mellitus with diabetic peripheral angiopathy with gangrene | CPT/HCPCS: 11042; G0463 ==

== ENCOUNTER → 2020-12-07 | Outpatient (CLI) | payer OTHER | LOC: WOUNDCARE 11:35 | PROVIDERS: ATTEND Surgery | DX: E11.621 Type 2 diabetes mellitus with foot ulcer (principal); E11.42 Type 2 diabetes mellitus with diabetic polyneuropathy; L97.512 Non-pressure chronic ulcer of other part of right foot with fat layer exposed; I96 Gangrene, not elsewhere classified | CPT/HCPCS: 11042; G0463 ==

== ENCOUNTER → 2020-12-14 | Outpatient (CLI) | payer OTHER | LOC: WOUNDCARE 14:57 | PROVIDERS: ATTEND Surgery | DX: E11.621 Type 2 diabetes mellitus with foot ulcer (principal); E11.42 Type 2 diabetes mellitus with diabetic polyneuropathy; L97.512 Non-pressure chronic ulcer of other part of right foot with fat layer exposed; E11.52 Type 2 diabetes mellitus with diabetic peripheral angiopathy with gangrene | CPT/HCPCS: 11042 ==

== ENCOUNTER 2020-12-21 05:32 | Outpatient (RCR) | payer OTHER ==
[~2020-12-21] VITALS: Ht 182.9 cm; Wt 91.8 kg
== END 2020-12-21 11:57 | disposition home or self-care (01) ==
LOC: PREOP 05:32
PROVIDERS: ATTEND Podiatrist Foot & Ankle Surgery
DX: Z01.812 Encounter for preprocedural laboratory examination (principal); M89.371 Hypertrophy of bone, right ankle and foot; Z20.822 Contact with and (suspected) exposure to COVID-19
CPT/HCPCS: 87635

== ENCOUNTER → 2020-12-21 | Outpatient (CLI) | payer OTHER ==
[~2020-12-21] MED LIST changes: +GLIP5TAB13 PO; +LINA1TAB9 PO; +LISI20TA26 PO; +LNZ600T PO; +ROSU10TA28 PO; +SITA1TBM4 PO
== END ==
LOC: WOUNDCARE 08:28
PROVIDERS: ATTEND Surgery
DX: S90.821A Blister (nonthermal), right foot, initial encounter (principal)
CPT/HCPCS: A6207; G0463; 99212

== ENCOUNTER 2020-12-24 11:34 | Day surgery (SDC) | payer OTHER ==
[2020-12-24] VITALS (7 sets, daily range): BP systolic 102–123; BP diastolic 68–86
[~2020-12-24] VITALS: Ht 182 cm; Wt 91.8 kg
[2020-12-24] MEDS ORDERED: LACTATED RINGERS 1,000 ML IV PRN (11:45)
[2020-12-24] MEDS ORDERED: ceFAZolin INJECTION 1,000 MG in WATER (STERILE) FOR INJECTION 10 ML IV ONE (11:45)
[2020-12-24] MEDS ORDERED: BUPIVACAINE 0.5% 30 ML (SENSORCAINE) VIAL ONE (12:15)
[2020-12-24] MEDS ORDERED: LIDOCAINE 1% INJ 20 ML 20 ML VIAL ONE (12:15)
[2020-12-24] MEDS ORDERED: PROPOFOL INJECTION 50 ML IV ONE (12:27)
[2020-12-24] MEDS ORDERED: LIDOCAINE PF 2% 5 ML (XYLOCAINE) VIAL ONE (12:29)
[2020-12-24] MEDS ORDERED: BUPIVACAINE 0.25% 30 ML (SENSORCAINE) VIAL ONE (12:29)
[2020-12-24] MEDS ORDERED: MIDAZOLAM 2 MG/2 ML (VERSED) VIAL ONE (12:30)
--- NOTE | 2020-12-24 12:45 | Progress Note-Pre Operative ---
Pre-Operative Progress Note H&P Reviewed The H&P was reviewed, patient examined and no changes noted. Date Seen by Provider: Dec 24, 2020 Time Seen by Provider: 12:45 Date H&P Reviewed: Dec 24, 2020 Time H&P Reviewed: 12:45 Pre-Operative Diagnosis: Hypertrophic right 2nd metatarsal DIANNA QUIÑONEZ DPM Dec 24, 2020 12:45
[2020-12-24] MEDS ORDERED: proPOfol 200 MG/20 ML (DIPRIVAN) VIAL IV ONE (13:22)
[2020-12-24] MEDS ORDERED: SILVER SULFADIAZINE 50 GM CREAM ONE (13:31)
[2020-12-24] MEDS ORDERED: fentaNYL INJ 100 MCG/2 ML AMP IVP ONE (14:00)
[2020-12-24] MEDS ORDERED: morphine INJ 10 MG/ML 1ML (SYR OR VIAL) IVP ONE (14:00)
[2020-12-24] MEDS ORDERED: MEPERIDINE (DEMEROL) INJ 50 MG/ML IVP ONE (14:00)
[2020-12-24] MEDS ORDERED: ONDANSETRON 4 MG/2 ML (SDV) Z0FRAN IVP PRN (14:00)
--- NOTE | 2020-12-24 14:01 | Progress Note-Post Operative ---
Post-Operative Progess Note Surgeon (s)/Shore Man (s) Surgeon DIANNA QUIÑONEZ DPM Shore Man: none Pre-Operative Diagnosis Hypertrophic right 2nd metatarsal Post-Operative Diagnosis Same Procedure & Operative Findings Date of Procedure 12/24/20 Procedure Performed/Findings Amputation of the right 2nd metatarsal head Anesthesia Type MAC Estimated Blood Loss Estimated blood loss (mL): Minimal Specimens/Packing Specimens Removed Right 2nd metatarsal head Packing: None DIANNA QUIÑONEZ DPM Dec 24, 2020 14:01
[2020-12-24] MEDS ORDERED: ACHD5005 PO (14:07)
[2020-12-24] MEDS ORDERED: CEPH500C PO (14:07)
[2020-12-24] MEDS ORDERED: HYDROcodone/APAP 5 MG/325 MG (LORTAB) TAB PO PRN (14:15)
[2020-12-24] MEDS ORDERED: LACTATED RINGERS 1,000 ML IV SCH (14:15)
--- NOTE | 2020-12-24 15:07 | Physical Therapy Ortho Eval ---
PT Orthopedic Evaluation Type of Surgery hypertrophic right second metatarsal Prior Level of Function Current Living Status: Locomotion (Upon Admit): Independent Established Durable Medical Eq: Front Wheeled Walker Patient states he is staying with a friend right now, no steps to enter her home. Subjective Subjective Patient in bed pre tx, agrees to PT, has no complaints of pain Entry Into Home: Level Entry Motor Control Motor Control: Motor Control WNL ROM ROM: WFL Transfer SCALE: Activities may be completed with or without assistive devices. 9-Uhwzcmlvsl-xxnctbs completes the activity by him/herself with no assistance from a helper. 5-Set-up or Clean-up Assistance-helper sets up or cleans up; patient completes activity. [place] assists only prior to or following the activity. 4-Supervision or Touching Assistance-helper provides verbal cues and/or touching/steadying and/or contact guard assistance as patient completes activity. Assistance may be provided throughout the activity or intermittently. 3-Partial/Moderate Assistance-helper does LESS THAN HALF the effort. [place] lifts, holds or supports trunk or limbs, but provides less than half the effort. 2-Substantial/Maximal Assistance-helper does MORE THAN HALF the effort. [place] lifts or holds trunk or limbs and provides more than half the effort. 0-Lqysnvafb-okctwt does ALL the effort. Patient does none of the effort to compl ete the activity. Or, the assistance of 2 or more helpers is required for the patient to complete the activity. If activity was not attempted, code reason: 7-Patient Refused. 9-Not Applicable-not attempted and the patient did not perform the activity before the current illness, exacerbation or injury. 10-Not Attempted due to Environmental Limitations-(lack of equipment, weather restraints, etc.). 88-Not Attempted due to Medical Conditions or Safety Concerns. Transfers (B, C, W/C) (QC): 4 SBA Gait Gait Assistive Device: FWW Right Lower Extremity: Right Weight Bearing Status RLE: Partial Weight Bearing (doctor wants weight through heel) Left Lower Extremity: Left Weight Bearing Status LLE: Full Weight Bearing Other Weight Bearing Inst.: Heel contact only for the right foot. Gait (QC): 4 Distance: 200' Gait Level of Assist: 4 Summary/Comments Patient ambulated 200' with a rolling walker with SBA. Patient also went up and down 1 step using a rolling walker with SBA and cues for step placement. Treatment Rendered Treatment: Therapeutic Exercises, Gait Train, Step Train Exercise Instruction: Ankle Pumps LAQ Assessment/Goals Goal Time Frame: 1 Visit Understands HEP: Yes Safe Ambulation: Yes Plan Treatment Plan: Discharge PT/Family Agrees to Plan: Yes Time Time In: 1446 Time Out: 1458 Total Billed Treatment Time: 12 Billed Treatment Time 1 visit SANJUANA 12' POLLY MCGRATH PT Dec 24, 2020 15:07
--- NOTE | 2020-12-24 16:37 | Diagnostic Imaging Report ---
INDICATION: Postop evaluation. COMPARISON: 05/05/2020. TECHNIQUE: Two views of right foot were obtained. FINDINGS: Since prior examination, there has been progressive amputation of the distal aspect of the 2nd metatarsal. There is some increased lucency at the amputation site in the distal aspect of the residual 2nd metatarsal. In addition, there is a linear ossific fragment along the medial margin of the 2nd metatarsal amputation site. Amputation of the 1st and 3rd distal metatarsals is similar to prior exam. Stable flattening of the 4th metatarsal head that may be from old trauma. IMPRESSION: 1. Since most recent examination of 05/05/2020, there has been progressive amputation of the distal 2nd metatarsal. Lucency and osseous fragmentation may be postoperative in nature, but could be due to recurrent infection, depending on how recent the revision amputation was performed. Dictated by: Dictated on workstation # [id number]
--- NOTE | 2020-12-24 20:57 | OPERATIVE REPORT ---
DATE OF SERVICE: 12/24/2020 SURGEON: Caterina Quiñonez DPM. PREOPERATIVE DIAGNOSIS: Hypertrophic right second metatarsal. POSTOPERATIVE DIAGNOSES: Hypertrophic right second metatarsal in addition to chronic ulceration, right foot. PROCEDURE: Amputation of right second metatarsal distal aspect. WOUND CLASS: Clean contaminated. ANESTHESIA: Monitored anesthesia care. HEMOSTASIS: Pneumatic ankle tourniquet at 250 mmHg. INDICATIONS: This 55-year-old male presents with a chronic wound to the right forefoot. He has had previous amputation of the right hallux second and third digits. There was a partial metatarsal amputation of the third and first metatarsals leaving the second metatarsal a little bit long. I believe this is the main cause for the ulceration underneath the head of the second metatarsal conservative care therapy is met with unsatisfactory results. He has gone through several total contact cast, another different treatment options for closure and nothing has resolved his chronic ulceration. After risks and complications were discussed at length and understanding that there might be a direct extension from the plantar ulcer to the surgical site dorsal aspect of the right foot, he is willing to proceed. If there is a direct extension, he is at high risk for an osteomyelitis of the second metatarsal after the surgery and he is willing to proceed. DESCRIPTION OF PROCEDURE: The patient was brought back to the operating table, placed in secure supine position. Anesthesia was achieved utilizing 5 mL of 1:1 mixture of 1% Xylocaine, 0.5% Marcaine injected in a second ray block to the right foot. The right lower extremity had an ankle tourniquet placed over several layers of padded. The right foot was then prepped and draped in the normal sterile manner. The right foot was then elevated, allowed to exsanguinate after which the tourniquet was inflated to 250 mmHg. Appropriate timeout course was performed. Attention was then directed to the dorsal aspect of the right second ray where a 2.5 cm longitudinal linear incision was created over the second metatarsal head extending down to bone. Great care to identify and retract all vital neurovascular structures. All the necessary blood vessels were cauterized as encountered. The incision was deepened down to the periosteum where as a longitudinal periosteal incision was made identifying the irregular head of the second metatarsal. Next, utilizing preoperative x-rays, cut of the second metatarsal head was performed approximately 11 mm proximal to its distal tip of the second metatarsal head. The bone cut was performed from dorsal distal to proximal plantar. The second metatarsal head was dissected free from its soft tissue attachments and sent for gross and microscopic evaluation. No osseous bony prominences were identified with palpation. Inspection of the soft tissue surrounding of the metatarsal head was free of any necrosis, purulent pocket noted. There were no gross signs of bacterial infection at this time and it did appear to be a direct extension from the plantar wound to the surgical site. The wound was irrigated utilizing copious amounts of normal saline. The wound was swabbed for cultures of aerobic and anaerobic bacterium prior to closure. Closure was then performed in layers. Subcutaneous tissue was reapproximated utilizing 4-0 Vicryl. Skin closure was performed with 4-0 Prolene in a horizontal mattress type stitch. Postoperative dressing consisted of Silvadene cream applied to the plantar ulceration to the right second metatarsal head area, sterile 4 x 4, sterile gauze all secured with a Coban wrap. The patient is to keep the dressing intact for at least 3 days and then change the dressing for wound care on the plantar aspect of the right forefoot. He is also to apply Betadine to the incision site dorsal aspect of the right foot. He is to be as nonweightbearing as possible to allow for healing. We will see the patient back in my office in one week period of time or sooner if necessary. Job ID: [id number] DocumentID: [id number] Dictated Date: 12/24/2020 14:15:00 Strap Setter Date: 12/24/2020 20:56:22 Dictated By: CATERINA QUIÑONEZ DPM
== END 2020-12-24 15:15 ==
LOC: SDC 11:34
PROVIDERS: ATTEND Podiatrist Foot & Ankle Surgery
DX: L97.519 Non-pressure chronic ulcer of other part of right foot with unspecified severity (principal); M89.371 Hypertrophy of bone, right ankle and foot; I10 Essential (primary) hypertension; G47.33 Obstructive sleep apnea (adult) (pediatric); E11.40 Type 2 diabetes mellitus with diabetic neuropathy, unspecified; Z79.899 Other long term (current) drug therapy; Z79.84 Long term (current) use of oral hypoglycemic drugs
CPT/HCPCS: 28805; 73620; 82962; 87070; 87075; 87081; 87205; 97161; C1713

== ENCOUNTER → 2021-09-15 | Outpatient (CLI) | payer OTHER ==
[~2021-09-15] MED LIST changes: +ACHD5005 PO; +CEPH500C PO; -SULF1TAB35 PO; +SULF1TAB38 PO
[2021-09-15 10:40] LABS: ALBUMIN 4.1 GM/DL (3.2-4.5); BILIRUBIN,TOTAL 0.7 MG/DL (0.1-1.0); CALCIUM 9.1 MG/DL (8.5-10.1); CREATININE SERUM 1.37 MG/DL (0.60-1.30); POTASSIUM 4.7 MMOL/L (3.6-5.0); TOTAL PROTEIN 7.1 GM/DL (6.4-8.2)
== END ==
LOC: LAB 09:59
PROVIDERS: ATTEND Family Medicine
DX: L97.512 Non-pressure chronic ulcer of other part of right foot with fat layer exposed (principal); L97.212 Non-pressure chronic ulcer of right calf with fat layer exposed; E11.621 Type 2 diabetes mellitus with foot ulcer; E11.65 Type 2 diabetes mellitus with hyperglycemia; L03.115 Cellulitis of right lower limb; E11.43 Type 2 diabetes mellitus with diabetic autonomic (poly)neuropathy
CPT/HCPCS: 36415; 80053

== ENCOUNTER → 2021-09-15 | Outpatient (CLI) | payer OTHER | LOC: WOUNDCARE 07:57 | PROVIDERS: ATTEND Family Medicine | DX: E11.621 Type 2 diabetes mellitus with foot ulcer (principal); L97.512 Non-pressure chronic ulcer of other part of right foot with fat layer exposed; L97.212 Non-pressure chronic ulcer of right calf with fat layer exposed; E11.65 Type 2 diabetes mellitus with hyperglycemia; L03.115 Cellulitis of right lower limb; E11.43 Type 2 diabetes mellitus with diabetic autonomic (poly)neuropathy | CPT/HCPCS: 11042; 97597; A6197; G0463; L4360 ==

== ENCOUNTER → 2021-09-21 | Outpatient (CLI) | payer OTHER | LOC: WOUNDCARE 10:33 | PROVIDERS: ATTEND Family Medicine | DX: L97.512 Non-pressure chronic ulcer of other part of right foot with fat layer exposed (principal); L97.212 Non-pressure chronic ulcer of right calf with fat layer exposed; E11.621 Type 2 diabetes mellitus with foot ulcer; E11.65 Type 2 diabetes mellitus with hyperglycemia; E11.43 Type 2 diabetes mellitus with diabetic autonomic (poly)neuropathy; E11.52 Type 2 diabetes mellitus with diabetic peripheral angiopathy with gangrene | CPT/HCPCS: 11042; G0463 ==

== ENCOUNTER → 2021-09-27 | Outpatient (CLI) | payer OTHER | LOC: WOUNDCARE 09:23 | PROVIDERS: ATTEND Family Medicine | DX: L97.512 Non-pressure chronic ulcer of other part of right foot with fat layer exposed (principal); L97.212 Non-pressure chronic ulcer of right calf with fat layer exposed; E11.621 Type 2 diabetes mellitus with foot ulcer; E11.65 Type 2 diabetes mellitus with hyperglycemia; E11.43 Type 2 diabetes mellitus with diabetic autonomic (poly)neuropathy; E11.52 Type 2 diabetes mellitus with diabetic peripheral angiopathy with gangrene | CPT/HCPCS: 11042; A6207; G0463 ==

== ENCOUNTER → 2021-09-29 | Outpatient (CLI) | payer OTHER | LOC: WOUNDCARE 08:20 | PROVIDERS: ATTEND Family Medicine | DX: E11.621 Type 2 diabetes mellitus with foot ulcer (principal); L97.512 Non-pressure chronic ulcer of other part of right foot with fat layer exposed; E11.65 Type 2 diabetes mellitus with hyperglycemia; E11.43 Type 2 diabetes mellitus with diabetic autonomic (poly)neuropathy | CPT/HCPCS: 29445; G0463 ==

== ENCOUNTER → 2021-10-06 | Outpatient (CLI) | payer OTHER | LOC: WOUNDCARE 08:34 | PROVIDERS: ATTEND Family Medicine | DX: E11.621 Type 2 diabetes mellitus with foot ulcer (principal); L97.512 Non-pressure chronic ulcer of other part of right foot with fat layer exposed; E11.65 Type 2 diabetes mellitus with hyperglycemia; E11.43 Type 2 diabetes mellitus with diabetic autonomic (poly)neuropathy | CPT/HCPCS: 11042; A6212; G0463 ==

== ENCOUNTER → 2021-10-13 | Outpatient (CLI) | payer OTHER | LOC: WOUNDCARE 08:37 | PROVIDERS: ATTEND Family Medicine | DX: L97.512 Non-pressure chronic ulcer of other part of right foot with fat layer exposed (principal); E11.621 Type 2 diabetes mellitus with foot ulcer; E11.65 Type 2 diabetes mellitus with hyperglycemia; E11.43 Type 2 diabetes mellitus with diabetic autonomic (poly)neuropathy | CPT/HCPCS: 29445; G0463 ==

== ENCOUNTER → 2021-10-20 | Outpatient (CLI) | payer OTHER | LOC: WOUNDCARE 09:03 | PROVIDERS: ATTEND Family Medicine | DX: Z53.9 Procedure and treatment not carried out, unspecified reason (principal) | CPT/HCPCS: 99211 ==

== ENCOUNTER → 2021-10-26 | Outpatient (CLI) | payer OTHER | LOC: WOUNDCARE 09:32 | PROVIDERS: ATTEND Family Medicine | DX: L97.512 Non-pressure chronic ulcer of other part of right foot with fat layer exposed (principal); E11.621 Type 2 diabetes mellitus with foot ulcer; E11.65 Type 2 diabetes mellitus with hyperglycemia; E11.43 Type 2 diabetes mellitus with diabetic autonomic (poly)neuropathy; E11.52 Type 2 diabetes mellitus with diabetic peripheral angiopathy with gangrene | CPT/HCPCS: 11042; G0463 ==

== ENCOUNTER → 2021-10-31 | Outpatient (CLI) | payer OTHER | LOC: WOUNDCARE 13:29 | PROVIDERS: ATTEND Family Medicine | DX: L97.512 Non-pressure chronic ulcer of other part of right foot with fat layer exposed (principal); E11.621 Type 2 diabetes mellitus with foot ulcer; E11.65 Type 2 diabetes mellitus with hyperglycemia; E11.43 Type 2 diabetes mellitus with diabetic autonomic (poly)neuropathy; E11.52 Type 2 diabetes mellitus with diabetic peripheral angiopathy with gangrene | CPT/HCPCS: 11042; A6212; G0463 ==

== ENCOUNTER → 2021-11-07 | Outpatient (CLI) | payer OTHER | LOC: WOUNDCARE 13:28 | PROVIDERS: ATTEND Family Medicine | DX: L97.512 Non-pressure chronic ulcer of other part of right foot with fat layer exposed (principal); E11.621 Type 2 diabetes mellitus with foot ulcer; E11.65 Type 2 diabetes mellitus with hyperglycemia; E11.43 Type 2 diabetes mellitus with diabetic autonomic (poly)neuropathy; E11.52 Type 2 diabetes mellitus with diabetic peripheral angiopathy with gangrene | CPT/HCPCS: 11042; G0463 ==

== ENCOUNTER → 2021-11-14 | Outpatient (CLI) | payer OTHER | LOC: WOUNDCARE 10:13 | PROVIDERS: ATTEND Family Medicine | DX: E11.621 Type 2 diabetes mellitus with foot ulcer (principal); L97.512 Non-pressure chronic ulcer of other part of right foot with fat layer exposed; E11.65 Type 2 diabetes mellitus with hyperglycemia; E11.43 Type 2 diabetes mellitus with diabetic autonomic (poly)neuropathy; E11.52 Type 2 diabetes mellitus with diabetic peripheral angiopathy with gangrene | CPT/HCPCS: 11042; A6209; G0463 ==